=== PATIENT | male | born 1930 | race Caucasian/White ===

== ENCOUNTER 2017-02-06 14:56 | Inpatient (IN) | payer OTHER, MEDICARE ==
[~2017-02-06] VITALS: Ht 162.6 cm; Wt 68.5 kg
[~2017-02-06 14:56] MED LIST: ALDACTONE50 MG PO; ASPIRIN81 M1 PO; CLEOCIN HCL150 MG PO; COREG6.25 MG PO; FAMOTIDINE20 M1 PO; FLORASTOR250 MG PO; LEVAQUIN250 MG PO; LIPITOR20 MG PO; LOSARTAN POTASS50 MG PO; PLAVIX75 MG PO
[2017-02-06 15:11] VITALS: BP 179/80
--- NOTE | 2017-02-06 19:12 | NUR ---
PATIENT AMBULATED TO BED 4
[2017-02-06] MEDS ORDERED: NACL 0.9% 1,000 ML IV ONE (19:20)
--- NOTE | 2017-02-06 19:24 | NUR ---
Patient being evaluated by physician at bedside.
[2017-02-06] MEDS ORDERED: MECLIZINE 25 MG TAB PO ONE (19:45)
[2017-02-06] MEDS ORDERED: METOPROLOL 5 MG/5 ML VIAL IVP ONE (21:20)
[2017-02-06] MEDS ORDERED: NACL 0.9% 1,000 ML IV SCH (22:09)
[2017-02-06] MEDS ORDERED: MORPHINE SULFATE 2 MG/ML SYR IVP PRN (22:10)
[2017-02-06] MEDS ORDERED: HYDROcodone/APAP 5/325 MG 1 TAB TAB PO PRN (22:10)
[2017-02-06] MEDS ORDERED: ACETAMINOPHEN 325 MG TAB PO PRN (22:10)
[2017-02-06] MEDS ORDERED: ONDANSETRON 4 MG/2 ML VIAL IVP PRN (22:10)
[2017-02-06] MEDS ORDERED: MECLIZINE 25 MG TAB PO PRN (22:15)
--- NOTE | 2017-02-06 23:05 | NUR ---
Patient will be admitted to care of DR LAWSON. Admited to TELE. Will go to room 107A. Belongings list completed. Report to INGA PEACOCK.
[2017-02-07] VITALS (7 sets, daily range): BP systolic 145–171; BP diastolic 71–97
--- NOTE | 2017-02-07 00:20 | NUR ---
PATIENT ARRIVED TO UNIT FROM ED VIA GURNEY, PATIENT TRANSFERED TO BED, PATIENT AAOX4 ON ROOM AIR NO SOB OR SIGN OF DISTRESS, IV PATENT AND INTACT, DENIES PAIN AT THIS TIME. PATIENT CONNECTED TO TELE MONITOR. ORIENTED PATIENT TO ROOM AND CALL LIGHT, PATIENTS DAUGHTER AT BEDSIDE TO HELP WITH PT HISTORY. DISCUSSED PLAN OF CARE WITH PATIENT, PATIENT VERBALIZED UNDERSTANDING, CALL LIGHT WITHIN REACH, SAFETY MEASURES CHECKED, WILL CONTINUE TO CLOSELY MONITOR, VITAL SIGNS STABLE
--- NOTE | 2017-02-07 02:30 | NUR ---
PATIENT SLEEPING, NO SIGN OF DISTRESS, CALL LIGHT WITHIN REACH. WILL CONTINUE TO MONITOR.
--- NOTE | 2017-02-07 04:20 | NUR ---
VITAL SIGNS STABLE. NO SIGN OF DISTRESS, CALL LIGHT WITHIN REACH. WILL CONTINUE TO MONITOR
--- NOTE | 2017-02-07 07:15 | NUR ---
RECEIVED PT REPORT AT BEDSIDE FROM NIGHT NURSE. PT IS AAOX4 WITH NO S/S OF DISTRESS ON ROOM AIR. PT SKIN IS INTACT. NOTED IVF RUNNING ON THE RIGHT AC. ON TELE MONITORING. PT DENIES PAIN AND HAS BED LOWERED, FLAT, AND WITH CALL LIGHT WITHIN REACH.
--- NOTE | 2017-02-07 07:30 | NUR ---
ENDORSED PATIENT TO DAY RN AT BEDSIDE, PATIENT IN STABLE CONDITION
[2017-02-07] MEDS ORDERED: NON-FORMULARY ITEM (Famotidine 20 MG) PO SCH (09:00)
[2017-02-07] MEDS ORDERED: LOSARTAN 50 MG TAB PO SCH (09:00)
[2017-02-07] MEDS ORDERED: ATORVASTATIN 20 MG TAB PO SCH (09:00)
[2017-02-07] MEDS: SPIRONOLACTONE 50 MG TAB PO SCH ×2 (09:00→11:50)
--- NOTE | 2017-02-07 09:00 | NUR ---
ADMINISTERED SCHEDULED MEDICATION. PT TOLERATED WELL. WILL CONTINUE TO MONITOR.
[2017-02-07] MEDS: ASPIRIN 81 MG TAB.CHEW PO SCH (09:03)
[2017-02-07] MEDS: CARVEDILOL 6.25 MG TAB PO SCH ×2 (09:04→20:11)
[2017-02-07] MEDS: CLOPIDOGREL 75 MG TAB PO SCH (09:06)
[2017-02-07] MEDS: FAMOTIDINE 20 MG TAB PO SCH ×2 (09:06→20:10)
--- NOTE | 2017-02-07 09:15 | NUR ---
PT SEEN BY DR GÓMEZ.
--- NOTE | 2017-02-07 11:00 | NUR ---
PT AMB TO BR WITH STEADY GAIT. PT IN ROOM WITH FAMILY MEMBERS AND SHOWS NO S/S OF DISTRESS NOTED.
--- NOTE | 2017-02-07 12:15 | NUR ---
PT EATING LUNCH AND TOLERATING WELL.
--- NOTE | 2017-02-07 13:00 | NUR ---
PT IN BED SLEEPING WITH NO S/S OF DISTRESS ON ROOM AIR. WILL CONTINUE TO MONITOR.
--- NOTE | 2017-02-07 15:30 | NUR ---
PT HAS DAUGHTER AT BEDSIDE. PT SHOWS NO S/S OF DISTRESS NOTED.
--- NOTE | 2017-02-07 16:54 | NUR ---
PT IN BED WITH FAMILY MEMBER AT SIDE. PT IS SLEEPING AND SHOWS NO S/S OF DISTRESS NOTED.
--- NOTE | 2017-02-07 17:40 | NUR ---
PT STATES NO DIZZINESS, HEADACHE, OR PAIN. WILL CONTINUE TO MONITOR.
--- NOTE | 2017-02-07 18:43 | NUR ---
PT IS IN BED WITH DAUGHTER AT BEDSIDE. TOLERATED DINNER WELL AND SHOWS NO S/S OF DISTRESS ON ROOM AIR.
--- NOTE | 2017-02-07 19:09 | NUR ---
GAVE PT REPORT TO NIGHT NURSE AT BEDSIDE. PT ENDORSED IN STABLE CONDITION.
--- NOTE | 2017-02-07 19:30 | NUR ---
RECEIVED REPORT FROM DAY RN AT BEDSIDE, PATIENT IS AAOX4 RESTING IN BED, ON ROOM AIR, NO SOB OR SIGN OF DISTRESS AT THIS TIME, IV TO LAC PATENT AND INTACT, SKIN INTACT, PATIENT DENIES PAIN AT THIS TIME, DISCUSSED PLAN OF CARE WITH PATIENT, PATIENT VERBALIZED UNDERSTANDING, SAFETY MEASURES CHECKED, CALL LIGHT WITHIN REACH WILL CONTINUE TO MONITOR
--- NOTE | 2017-02-07 20:15 | NUR ---
PM MEDS ADMINISTERED, PATIENT TOLERATED WELL, CALL LIGHT WITHIN REACH. WILL CONTINUE TO MONITOR
[2017-02-07] MEDS ORDERED: SIMVASTATIN 40 MG TAB PO SCH (21:00)
[2017-02-07] MEDS ORDERED: NACL 0.9% 1,000 ML IV SCH (22:09)
--- NOTE | 2017-02-07 22:30 | NUR ---
PATIENT SLEEPING, NO SOB OR SIGN OF DISTRESS, VITAL SIGNS STABLE, CALL LIGHT WITHIN REACH. WILL CONTINUE TO MONITOR
[2017-02-08] VITALS: BP 144/74
--- NOTE | 2017-02-08 | NUR ---
VITAL SIGNS STABLE, NO SOB OR SIGN OF DISTRESS, CALL LIGHT WITHIN REACH. WILL CONTINUE TO MONITOR
--- NOTE | 2017-02-08 02:40 | NUR ---
PATIENT SLEEPING, NO SOB OR SIGN OF DISTRESS AT THIS TIME, CALL LIGHT WITHIN REACH. WILL CONTINUE TO MONITOR.
[2017-02-08 04:00] VITALS: BP 154/72
--- NOTE | 2017-02-08 04:00 | NUR ---
PATIENT SLEEPING, NO SIGN OF DISTRESS, CALL LIGHT WITHIN REACH. WILL CONTINUE TO MONITOR
--- NOTE | 2017-02-08 07:30 | NUR ---
ENDORSED PATIENT TO DAY RN AT BEDSIDE, PATIENT IN STABLE CONDITION
--- NOTE | 2017-02-08 07:31 | NUR ---
RECEIVED PT AWAKE AND SITTING ON BED, AOX4, BULGARIAN SPEAKING, WITH NO S/S OF RESPIRATORY DISTRESS OR DISCOMFORT, WITH IV ACCESS AT RIGHT AC 20G INFUSING FLUIDS WELL. SKIN IS INTACT, DISCUSSED PLAN OF CARE INTERPRETED BY CHRIS CAPONE, PT VERBALIZED UNDERSTANDING. SAFETY PRECAUTIONS ENFORCED. CALL LIGHT WITHIN REACH, WILL CONTINUE TO MONITOR.
--- NOTE | 2017-02-08 07:35 | NUR ---
DR FOX AT BEDSIDE
[2017-02-08 08:00] VITALS: BP 156/74
[2017-02-08] MEDS ORDERED: MECLIZINE 25 MG TAB PO SCH ×2 (08:15→08:35)
[2017-02-08] MEDS ORDERED: MECLIZINE 25 MG TAB PO PRN (08:15)
[2017-02-08] MEDS: ASPIRIN 81 MG TAB.CHEW PO SCH (08:50)
[2017-02-08] MEDS: CLOPIDOGREL 75 MG TAB PO SCH (08:51)
[2017-02-08] MEDS: SPIRONOLACTONE 50 MG TAB PO SCH (08:51)
[2017-02-08] MEDS: FAMOTIDINE 20 MG TAB PO SCH (08:52)
--- NOTE | 2017-02-08 08:52 | NUR ---
DUE MEDS GIVEN, PT TOLERATED WELL. MEDS EXPLAINED AND EDUCATION DONE INTERPRETED BY CHRIS CAPONE. PT VERBALIZED UNDERSTANDING
[2017-02-08] MEDS ORDERED: LOSARTAN 50 MG TAB PO SCH ×3 (09:00→21:00)
[2017-02-08] MEDS: CARVEDILOL 6.25 MG TAB PO SCH (09:00)
--- NOTE | 2017-02-08 09:19 | NUR ---
PATIENT HAS BEEN SCREENED AND CATEGORIZED MODERATE NUTRITION RISK. PATIENT WILL BE SEEN WITHIN 3-5 DAYS OF ADMISSION. 02/09/17-02/11/[address]
--- NOTE | 2017-02-08 10:06 | NUR ---
PT ASLEEP SLEEPING COMFORTABLE, REMOVED TELE MONITOR PER ORDERS. Addendum: 02/08/17 at 1006 by Renee Saleh RN WRONG PT
--- NOTE | 2017-02-08 10:21 | NUR ---
FAXED INITIAL REVIEW TO [facility] [phone] PHONE KENA [phone]
[2017-02-08 11:15] VITALS: BP 151/73
[2017-02-08] MEDS ORDERED: ENALAPRILAT 2.5 MG/2 ML VIAL IVP SCH (11:59)
--- NOTE | 2017-02-08 12:10 | NUR ---
PT BP ELEVATED 173/74, DR SEWELL NOTIFIED
[2017-02-08] MEDS ORDERED: SPIRONOLACTONE25 MG PO (12:56)
[2017-02-08] MEDS ORDERED: COREG6.25 MG PO (12:56)
[2017-02-08] MEDS ORDERED: PLAVIX75 M1 PO (12:56)
[2017-02-08] MEDS ORDERED: FAMOTIDINE20 M2 PO (12:56)
[2017-02-08] MEDS ORDERED: LOSARTAN POTAS100 MG PO (12:56)
[2017-02-08] MEDS ORDERED: ASPIRIN81 M1 PO (12:56)
[2017-02-08] MEDS ORDERED: MECLIZINE HYDRO25 M2 PO (12:56)
[2017-02-08] MEDS ORDERED: LIPITOR20 MG PO (12:56)
[2017-02-08 13:08] VITALS: BP 151/73
--- NOTE | 2017-02-08 13:55 | NUR ---
DISCHARGE PRESCRIPTIONS AND INSTRUCTIONS GIVEN TO PATIENT AND DAUGHTER STEW, VERBALIZED UNDERSTANDING. ID WRISTBAND, TELE MONITOR AND IV ACCESS REMOVED, CATHETER TIP INTACT. PT LEFT UNIT IN A WHEELCHAIR ACCOMPANIED BY RN AND RELATIVES IN STABLE CONDITION
--- NOTE | 2017-02-08 15:04 | NUR ---
[id number] RECEIVED CALL FROM SHELLIE LANGE AT [facility] REQUESTING CLINICAL REVIEW. INFORMED HIM REVIEW FAXED THIS MORNING TO [phone] AND HE CONFIRMED THAT IS THE CORRECT FAX NUMBER BUT DOES NOT HAVE REVIEW, INFORMED HIM I WILL REFAX. SHELLIE'S PHONE IS [phone].
[2017-02-08] MEDS ORDERED: ATORVASTATIN 20 MG TAB PO SCH (21:00)
[2017-02-09] MEDS ORDERED: LOSARTAN 50 MG TAB PO SCH (09:00)
== END 2017-02-08 13:55 | disposition home or self-care (01) | DRG 52 ==
LOC: MED 14:56 → MTU 21:21
PROVIDERS: ADMIT Family Medicine; ATTEND Family Medicine
DX: I67.4 Hypertensive encephalopathy (principal); I50.43 Acute on chronic combined systolic (congestive) and diastolic (congestive) heart failure; I42.0 Dilated cardiomyopathy; G90.9 Disorder of the autonomic nervous system, unspecified; E11.9 Type 2 diabetes mellitus without complications; M75.101 Unspecified rotator cuff tear or rupture of right shoulder, not specified as traumatic; I11.0 Hypertensive heart disease with heart failure; I25.10 Atherosclerotic heart disease of native coronary artery without angina pectoris; Z79.82 Long term (current) use of aspirin; Z79.899 Other long term (current) drug therapy; Z91.14 Patient's other noncompliance with medication regimen; Z83.3 Family history of diabetes mellitus; Z82.49 Family history of ischemic heart disease and other diseases of the circulatory system; Z80.8 Family history of malignant neoplasm of other organs or systems

== ENCOUNTER 2017-07-23 21:14 | Inpatient (IN) | payer OTHER, MEDICARE ==
[~2017-07-23] VITALS: Ht 165.1 cm; Wt 68.9 kg
[~2017-07-23 21:14] MED LIST changes: -ALDACTONE50 MG PO; +ASPI81CT89 PO; -ASPIRIN81 M1 PO; +ATOR20TA PO; +CARV6.25 PO; -CLEOCIN HCL150 MG PO; +CLOP75TA PO; +CLOP75TA26 PO; -COREG6.25 MG PO; +FAMO20TA12 PO; +FAMO20TA13 PO; -FAMOTIDINE20 M1 PO; -FLORASTOR250 MG PO; -LEVAQUIN250 MG PO; -LIPITOR20 MG PO; +LOSA100T25 PO; -LOSARTAN POTASS50 MG PO; +MECL-272 PO; -PLAVIX75 MG PO; +SPIR25TA13 PO; +SPIR50TA PO
[2017-07-23 21:41] VITALS: BP 162/78
[2017-07-23] MEDS ORDERED: ASPIRIN 81 MG TAB.CHEW PO ONE (22:00)
--- NOTE | 2017-07-23 22:01 | NUR ---
PT TAKEN TO BED 1
--- NOTE | 2017-07-23 22:14 | NUR ---
Patient being evaluated by Dr. Duran at bedside.
--- NOTE | 2017-07-23 22:14 | NUR ---
86/M PRESENTS TO ER C/O CHEST PAIN X1 DAY. CHEST PAIN YESTERDAY ONLY. DIZZINESS AND WEAKNESS TODAY PT DENIES SOB, DENIES PAIN AT THIS TIME. AA&O X4, BL LUNG SOUNS CLEAR THROUGHOUT, PT DENIES N/V/D. VSS, ER MD NOTIFIED OF PT STATUS. PT IN BED WITH FAMILY AT BEDSIDE,COMFORT NEEDS MET.
[2017-07-23 22:21] LABS: HEMATOCRIT 39.7 % (36-52); HEMOGLOBIN 13.1 g/dL (12.0-18.0); MEAN CORPUSCULAR HEMOGLOBIN 31 pg (27-31); MEAN CORPUSCULAR HGB CONC 33 g/dL (33-37); MEAN CORPUSCULAR VOLUME 94 fL (80-94); PLATELET COUNT (AUTO) 162 K/uL (140-450); RED BLOOD CELL COUNT(AUTO) 4.24 MIL/uL (4.20-6.10); RED CELL DISTRIBUTION WIDTH 13.8 % (11.6-13.7); WHITE BLOOD COUNT (AUTO) 5.7 K/uL (4.8-10.8)
--- NOTE | 2017-07-23 22:30 | NUR ---
X-Ray at bedside.
[2017-07-23 22:34] LABS: ANION GAP 12.1 (8-16); CARBON DIOXIDE 29.1 mmol/L (21-32); CHLORIDE 104 mmol/L (98-107); GLUCOSE 111 mg/dL (74-106); POTASSIUM 4.2 mmol/L (3.5-5.1); SODIUM SERUM 141 mmol/L (136-145); UREA NITROGEN, BLOOD 16 mg/dL (7-18)
[2017-07-23 22:35] LABS: APPEARANCE,URINE CLEAR (CLEAR); BILIRUBIN,URINE NEGATIVE (NEGATIVE); BLOOD, URINE TRACE-I (NEGATIVE); COLOR,URINE YELLOW (YELLOW); LEUKOCYTE ESTERASE ,URINE NEGATIVE (NEGATIVE); NITRITE, URINE NEGATIVE (NEGATIVE); PH,URINE 6.5 (5.0-9.0); UGLUCOSE NEGATIVE (NEGATIVE)
[2017-07-23 22:40] LABS: RBC,URINE 0-5 (RARE) /HPF (0-5); WBC,URINE 0-5 (RARE) /HPF (0-5)
[2017-07-23 22:42] LABS: PROTHROMBIN TIME 10.8 secs (10.8-13.4)
[2017-07-23 22:51] LABS: ALBUMIN 4.3 g/dL (3.4-5.0); ASPARTATE AMINOTRANSFERASE 52 U/L (15-37); LIPASE 232 U/L (73-393); TOTAL BILIRUBIN 0.4 mg/dL (0.0-1.0)
[2017-07-23 22:52] LABS: EOSINOPHILS % (MANUAL) 1 % (0-4); LYMPHOCYTES % (MANUAL) 25 % (20-46); MONOCYTES % (MANUAL) 5 % (5-12)
[2017-07-23 23:01] LABS: CREATINE KINASE MB 1.7 ng/mL (0-3.6)
[2017-07-23] MEDS ORDERED: HYDROcodone/APAP 7.5/325 MG 1 TAB PO PRN (23:20)
[2017-07-23] MEDS ORDERED: ONDANSETRON 4 MG/2 ML VIAL IVP PRN (23:20)
[2017-07-23] MEDS ORDERED: ACETAMINOPHEN 325 MG TAB PO PRN (23:20)
--- NOTE | 2017-07-23 23:38 | NUR ---
Dr. Johns evaluating patient at bedside.
[2017-07-23] MEDS ORDERED: FURO-572 PO (23:51)
[2017-07-23] MEDS ORDERED: SACU1TAB9 PO (23:51)
[2017-07-23] MEDS ORDERED: ASPI81CT89 PO (23:51)
--- NOTE | 2017-07-23 23:54 | NUR ---
Patient will be admitted to care of dr rizzo. Admited to tele. Will go to room 122-a. Belongings list completed. Report to joon joshi .
[2017-07-24] VITALS (9 sets, daily range): BP systolic 126–197; BP diastolic 58–87
--- NOTE | 2017-07-24 00:10 | NUR ---
Admitted from ER, with chief complaint of CHEST PAIN, DIZZINESS, DX CHEST PAIN. PT'S SON AT BEDSIDE. 86 y/o, Male, Cooperative, UPPER SORBIAN-SPEAKING, PT REFUSED EQUIPMENT ENGINEERING TECHNICIAN SERVICE, PREFERRED TO HAVE PT'S SON TRANSLATE FOR HIM. PT RESTING IN BED, AOX4, AMBULATORY, ABLE TO VERBALIZE NEEDS. CONCRETE FORM SETTER IN PLACE. PT STATED THAT YESTERDAY, HE FELT DIZZY AND IS UNSURE IF HE LOST CONSCIOUSNESS AND HE FELT SUDDEN NON-RADIATING CHEST PRESSURE. PT DENIES FALLING OR HITTING HIS HEAD. PT DENIES CHEST PAIN OR PRESSURE AT THIS TIME. IV ACCESS ASYMPTOMATIC, PATENT AND INTACT. SALINE LOCKED. DISCUSSED AND REVIEWED PLAN OF CARE WITH PT AND PT'S SON WHO VERBALIZED UNDERSTANDING. oriented to call light, bed, phone,television, bathroom, smoking policy, visiting hours, procedures, ID bracelet on. Belongings list checked. ALL NEEDS MET. SAFETY MEASURES ENSURED. CALL LIGHT WITHIN REACH. WILL CONTINUE TO MONITOR.
[2017-07-24 00:19] LABS: CHOL/HDL RATIO 2.4 (1-4.5); FREE T4 (FREE THYROXINE) 0.83 ng/dL (0.76-1.46); MAGNESIUM 1.8 mg/dL (1.8-2.4); PHOSPHORUS 3.7 mg/dL (2.5-4.9); THYROID STIMULATING HORMONE 15.59 uIU/mL (0.34-3.74)
[2017-07-24] MEDS ORDERED: hydrALAZINE 20 MG/ML VIAL IVP PRN (00:45)
[2017-07-24] MEDS ORDERED: MECLIZINE 25 MG TAB PO PRN (00:45)
--- NOTE | 2017-07-24 00:45 | NUR ---
CALLED DR LEDESMA, DISCUSSED DX CHEST PAIN, MADE MD AWARE OF HIGH BP 197/87, AND PT'S HOME MEDS, PT STATING THAT HE TOOK HIS HOME MEDS IN THE AM BUT DID NOT TAKE HIS HOME MEDS FOR NIGHT. ORDERS PENDING, WILL CARRY OUT.
[2017-07-24] MEDS: CARVEDILOL 6.25 MG TAB PO SCH ×2 (01:10→09:33)
--- NOTE | 2017-07-24 01:10 | NUR ---
UNABLE TO PULL COREG 6.25MG PO FROM [place], RECEIVED MED FROM FAMILY COACH. ADMINISTERED DUE MED COREG 6.25MG PO AT THIS TIME WITH EDUCATION. BP 197, HR 65. PT VERBALIZED UNDERSTANDING, TOLERATED MED WELL. ALL NEEDS MET. SAFETY MEASURES ENSURED. CALL LIGHT WITHIN REACH. WILL CONTINUE TO MONITOR.
[2017-07-24] MEDS ORDERED: CARVEDILOL 6.25 MG TAB ONE (01:15)
--- NOTE | 2017-07-24 04:01 | NUR ---
PT SLEEPING COMFORTABLY, AROUSABLE TO NAME, NO S/S OF ACUTE DISTRESS. ALL NEEDS MET. SAFETY MEASURES ENSURED. CALL LIGHT WITHIN REACH. WILL CONTINUE TO MONITOR.
[2017-07-24 05:34] LABS: BASOPHILS # (AUTO) 0.3 K/uL (0.00-0.22); BASOPHILS % (AUTO) 4.7 % (0.0-2.0); EOSINOPHILS # (AUTO) 0.1 K/uL (0-0.4); EOSINOPHILS % (AUTO) 2.1 % (0.0-4.0); HEMATOCRIT 38.7 % (36-52); HEMOGLOBIN 12.8 g/dL (12.0-18.0); LYMPHOCYTES # (AUTO) 1.8 K/uL (2.0-11.5); MEAN CORPUSCULAR HEMOGLOBIN 31 pg (27-31); MEAN CORPUSCULAR HGB CONC 33 g/dL (33-37); MEAN CORPUSCULAR VOLUME 94 fL (80-94); MONOCYTES # (AUTO) 0.6 K/uL (0.8-1.0); MONOCYTES % (AUTO) 9.2 % (1.7-9.3); NEUTROPHILS # (AUTO) 3.3 K/uL (1.8-7.7); PLATELET COUNT (AUTO) 143 K/uL (140-450); RED BLOOD CELL COUNT(AUTO) 4.14 MIL/uL (4.20-6.10); RED CELL DISTRIBUTION WIDTH 13.5 % (11.6-13.7); WHITE BLOOD COUNT (AUTO) 6.1 K/uL (4.8-10.8)
[2017-07-24 06:16] LABS: ANION GAP 11.5 (8-16); CARBON DIOXIDE 28.2 mmol/L (21-32); CHLORIDE 105 mmol/L (98-107); CREATININE 0.9 mg/dL (0.7-1.3); GLUCOSE 115 mg/dL (74-106); POTASSIUM 3.7 mmol/L (3.5-5.1); SODIUM SERUM 141 mmol/L (136-145); UREA NITROGEN, BLOOD 14 mg/dL (7-18)
[2017-07-24 07:01] LABS: PHOSPHORUS 3.4 mg/dL (2.5-4.9)
--- NOTE | 2017-07-24 07:15 | NUR ---
ENDORSED PLAN OF CARE TO AM NURSE. CONDITION STABLE.
--- NOTE | 2017-07-24 07:16 | NUR ---
RECEIVED REPORT FROM THE BLOCKER POLISHING NURSE AT BEDSIDE FOR CONTINUITY OF CARE. PT IS AWAKE AND ORIENTED. TURKMEN SPEAKING. INTRODUCED MYSELF AND UPDATED THE BOARD. PT DENIES ANY SOB OR CHEST PAIN. V/S WITHIN NORMAL RANGE, EXCEPT ELEVATED BP. PT SKIN IS INTACT. IV ON L AC 20G SL. SO FAR, 2 NEG TROPONIN. WAITING ON 3RD TROPONIN AT 1300. PLAN FOR TODAY: US CAROTID, US KIDNEY, ECHO AND CONSULT W/ DR. LEE.
[2017-07-24] MEDS ORDERED: VALSARTAN PO SCH (09:00)
[2017-07-24] MEDS ORDERED: ASPIRIN 81 MG TAB.CHEW PO SCH (09:00)
[2017-07-24] MEDS ORDERED: CLOPIDOGREL 75 MG TAB PO SCH (09:00)
[2017-07-24] MEDS ORDERED: SACUBITRIL PO SCH (09:00)
[2017-07-24] MEDS ORDERED: CARVEDILOL 6.25 MG TAB PO SCH (09:00)
[2017-07-24] MEDS ORDERED: FAMOTIDINE 20 MG TAB PO SCH (09:00)
[2017-07-24] MEDS: ASPIRIN 81 MG TAB.CHEW PO SCH (09:31)
[2017-07-24] MEDS: DOCUSATE SODIUM 100 MG GELCAP PO SCH ×2 (09:31→20:40)
[2017-07-24] MEDS: FUROSEMIDE 20 MG TAB PO SCH (09:32)
[2017-07-24] MEDS: ATORVASTATIN 20 MG TAB PO SCH (09:33)
[2017-07-24] MEDS: CLOPIDOGREL 75 MG TAB PO SCH (09:33)
--- NOTE | 2017-07-24 09:40 | NUR ---
ADMINISTERED MORNING MEDS. HYDRALAZINE ALSO GIVEN D/T HIGH BP 168/81. PT TOLERATED WELL. WILL CONTINUE TO MONITOR PT.
--- NOTE | 2017-07-24 10:05 | NUR ---
PATIENT HAS BEEN SCREENED AND CATEGORIZED MODERATE RISK. PATIENT WILL BE SEEN WITHIN 3-5 DAYS OF ADMISSION. 07/26/17 TO 07/28/[address]
--- NOTE | 2017-07-24 11:11 | NUR ---
FAMILY MEMBER VISITING.
[2017-07-24] MEDS ORDERED: FAMO20TA13 PO (15:37)
[2017-07-24] MEDS ORDERED: CARV6.25 PO (15:37)
[2017-07-24] MEDS ORDERED: SYN.05 PO (15:51)
--- NOTE | 2017-07-24 17:06 | NUR ---
PT IS RESTING COMFORTABLY W/ FAMILY MEMBERS AT BEDSIDE. PT DENIES ANY PAIN. WILL CONTINUE TO MONITOR PT.
--- NOTE | 2017-07-24 19:21 | NUR ---
ENDORSED PT TO THE SUPERVISOR COUNSELING AND GUIDANCE NURSE AT BEDSIDE FOR CONTINUITY OF CARE. PT IS IN STABLE CONDITION. ALL FAMILY MEMBERS ARE GONE AND PT IS RESTING COMFORTABLY. PT IN STABLE CONDITION.
--- NOTE | 2017-07-24 19:22 | NUR ---
RECEIVED REPORT FROM DAY SHIFT RN, PT IS Jesse/NAHID, ON ROOM AIR, SRI LANKAN SPEAKING. INTACT SKIN. LEFT AC IV 20G SALINE LOCKED. PT AMBULATES WITH STANDBY ASSISTANCE. SAFETY PRECAUTIONS IN PLACE. UPDATED BOARD. DISCUSSED PLAN OF CARE WITH PT IN SRI LANKAN, PT VERBALIZED UNDERSTANDING. VITAL SIGNS WITHIN NORMAL LIMITS. PT IN STABLE CONDITION, NO SIGNS OF DISTRESS NOTED. BED IN LOW POSITION, CALL LIGHT WITHIN REACH. WILL CONTINUE TO MONITOR.
[2017-07-24] MEDS: CARVEDILOL 12.5 MG TAB PO SCH (20:39)
--- NOTE | 2017-07-24 20:40 | NUR ---
ADMINISTERED SCHEDULED MEDICATIONS, PT TOLERATED WELL. PT IN STABLE CONDITION, NO SIGNS OF DISTRESS NOTED. BED IN LOW POSITION, CALL LIGHT WITHIN REACH. WILL CONTINUE TO MONITOR.
--- NOTE | 2017-07-24 21:19 | NUR ---
RECEIVED REPORT FROM DAY SHIFT RN, PT IS FATOUMATA, ON ROOM AIR, BERMUDIAN SPEAKING. INTACT SKIN. LEFT AC IV 20G SALINE LOCKED. PT AMBULATES WITH STANDBY ASSISTANCE. SAFETY PRECAUTIONS IN PLACE. UPDATED BOARD. DISCUSSED PLAN OF CARE WITH PT IN BERMUDIAN, PT VERBALIZED UNDERSTANDING. VITAL SIGNS WITHIN NORMAL LIMITS. PT IN STABLE CONDITION, NO SIGNS OF DISTRESS NOTED. BED IN LOW POSITION, CALL LIGHT WITHIN REACH. WILL CONTINUE TO MONITOR. Addendum: 07/24/17 at 2121 by Radha Eisenberg RN PLEASE DISREGARD. ERROR MADE.
[2017-07-25] VITALS: BP 137/65
--- NOTE | 2017-07-25 02:00 | NUR ---
PT STATES HE WANTS TO GO HOME. EXPLAINED TO PT DR WOULD BE IN TO SEE HIM AND DR WOULD DECIDE IF PT STABLE ENOUGH TO GO HOME. PT VERBALIZED UNDERSTANDING. PT IN STABLE CONDITION, NO SIGNS OF DISTRESS NOTED. BED IN LOW POSITION, CALL LIGHT WITHIN REACH. WILL CONTINUE TO MONITOR.
[2017-07-25 04:18] VITALS: BP 137/68
[2017-07-25] MEDS ORDERED: LEVOTHYROXINE 0.05 MG TAB PO SCH (06:30)
[2017-07-25 06:57] LABS: BASOPHILS # (AUTO) 0.2 K/uL (0.00-0.22); BASOPHILS % (AUTO) 3.9 % (0.0-2.0); EOSINOPHILS # (AUTO) 0.1 K/uL (0-0.4); EOSINOPHILS % (AUTO) 1.7 % (0.0-4.0); HEMOGLOBIN 12.5 g/dL (12.0-18.0); LYMPHOCYTES # (AUTO) 1.7 K/uL (2.0-11.5); LYMPHOCYTES % (AUTO) 32.1 % (20.5-51.1); MEAN CORPUSCULAR HEMOGLOBIN 32 pg (27-31); MEAN CORPUSCULAR HGB CONC 34 g/dL (33-37); MEAN CORPUSCULAR VOLUME 93 fL (80-94); MONOCYTES # (AUTO) 0.5 K/uL (0.8-1.0); MONOCYTES % (AUTO) 10.1 % (1.7-9.3); NEUTROPHILS # (AUTO) 2.7 K/uL (1.8-7.7); NEUTROPHILS % (AUTO) 52.2 % (42.2-75.2); PLATELET COUNT (AUTO) 153 K/uL (140-450); RED BLOOD CELL COUNT(AUTO) 3.98 MIL/uL (4.20-6.10); RED CELL DISTRIBUTION WIDTH 13.6 % (11.6-13.7); WHITE BLOOD COUNT (AUTO) 5.2 K/uL (4.8-10.8)
--- NOTE | 2017-07-25 07:20 | NUR ---
ENDORSED PT TO DAY SHIFT RN FOR CONTINUITY OF CARE. PT IN STABLE CONDITION WITH NO SIGNS OF DISTRESS.
[2017-07-25 07:49] LABS: ANION GAP 11.5 (8-16); CARBON DIOXIDE 29.5 mmol/L (21-32); CHLORIDE 103 mmol/L (98-107); CREATININE 1.3 mg/dL (0.7-1.3); GLUCOSE 113 mg/dL (74-106); SODIUM SERUM 140 mmol/L (136-145); UREA NITROGEN, BLOOD 22 mg/dL (7-18)
[2017-07-25 08:00] VITALS: BP 156/67
[2017-07-25] MEDS ORDERED: TAMSULOSIN 0.4 MG CAP PO SCH (08:30)
[2017-07-25] MEDS: ASPIRIN 81 MG TAB.CHEW PO SCH (08:43)
[2017-07-25] MEDS: DOCUSATE SODIUM 100 MG GELCAP PO SCH (08:43)
[2017-07-25] MEDS: FUROSEMIDE 20 MG TAB PO SCH (08:44)
[2017-07-25] MEDS: CLOPIDOGREL 75 MG TAB PO SCH (08:44)
[2017-07-25] MEDS: ATORVASTATIN 20 MG TAB PO SCH (08:44)
[2017-07-25] MEDS: CARVEDILOL 12.5 MG TAB PO SCH (09:00)
[2017-07-25] MEDS ORDERED: FAMOTIDINE 20 MG TAB PO SCH (09:00)
[2017-07-25 12:00] VITALS: BP 163/67
--- NOTE | 2017-07-26 15:13 | NUR ---
CM NOTE RETRO REVIEW FAXED TO [facility] / FAX# [phone], ATTN: AZUL #[phone]
== END 2017-07-25 14:00 | disposition home or self-care (01) | DRG 203 ==
LOC: MED 21:14 → MTU 23:26
PROVIDERS: ADMIT Student in an Organized Health Care Education/Training Program; ATTEND Student in an Organized Health Care Education/Training Program
DX: M94.0 Chondrocostal junction syndrome [Tietze] (principal); N17.0 Acute kidney failure with tubular necrosis; I50.43 Acute on chronic combined systolic (congestive) and diastolic (congestive) heart failure; I67.4 Hypertensive encephalopathy; I42.0 Dilated cardiomyopathy; E02 Subclinical iodine-deficiency hypothyroidism; I11.0 Hypertensive heart disease with heart failure; E11.51 Type 2 diabetes mellitus with diabetic peripheral angiopathy without gangrene; R00.1 Bradycardia, unspecified; G90.9 Disorder of the autonomic nervous system, unspecified; I44.0 Atrioventricular block, first degree; R31.9 Hematuria, unspecified; E78.00 Pure hypercholesterolemia, unspecified; Z90.49 Acquired absence of other specified parts of digestive tract; Z79.899 Other long term (current) drug therapy; Z83.3 Family history of diabetes mellitus; Z82.49 Family history of ischemic heart disease and other diseases of the circulatory system; Z80.0 Family history of malignant neoplasm of digestive organs; Z84.89 Family history of other specified conditions
CPT/HCPCS: 36415; 70450; 71010; 76770; 80048; 80053; 81001; 82150; 82550; 82553; 83036; 83605; 83690; 83735; 83880; 84100; 84439; 84443; 84484; 85025; 85610; 85730; 87081; 93005; 93880; 99285; J0360; Q0092

== ENCOUNTER 2018-09-30 04:15 | Inpatient (IN) | payer MEDICARE, OTHER ==
[~2018-09-30] VITALS: Ht 162.6 cm; Wt 65.3 kg
[~2018-09-30 04:15] MED LIST changes: -CLOP75TA PO; -CLOP75TA26 PO; -FAMO20TA12 PO; +FURO-572 PO; -LOSA100T25 PO; -MECL-272 PO; +SACU1TAB9 PO; -SPIR25TA13 PO; -SPIR50TA PO; +SYN.05 PO
[2018-09-30 04:22] VITALS: BP 182/78
[2018-09-30] MEDS ORDERED: NACL 0.9% 1,000 ML IV SCH (04:35)
[2018-09-30] MEDS ORDERED: ALBUTEROL SULFATE/IPRATROPIU 3 ML SOL IH ONE (04:35)
[2018-09-30 05:36] LABS: BASOPHILS % (AUTO) 0.2 % (0.0-2.0); EOSINOPHILS # (AUTO) 0.1 K/uL (0-0.4); EOSINOPHILS % (AUTO) 0.4 % (0.0-4.0); HEMATOCRIT 40.5 % (36-52); HEMOGLOBIN 12.9 g/dL (12.0-18.0); LYMPHOCYTES # (AUTO) 1.4 K/uL (2.0-11.5); LYMPHOCYTES % (AUTO) 11.1 % (20.5-51.1); MEAN CORPUSCULAR HEMOGLOBIN 30 pg (27-31); MEAN CORPUSCULAR HGB CONC 32 g/dL (33-37); MEAN CORPUSCULAR VOLUME 92.7 fL (80-94); MONOCYTES # (AUTO) 0.5 K/uL (0.8-1.0); MONOCYTES % (AUTO) 3.8 % (1.7-9.3); NEUTROPHILS # (AUTO) 10.5 K/uL (1.8-7.7); NEUTROPHILS % (AUTO) 84.5 % (42.2-75.2); PLATELET COUNT (AUTO) 217 K/uL (140-450); RED BLOOD CELL COUNT(AUTO) 4.37 MIL/uL (4.20-6.10); RED CELL DISTRIBUTION WIDTH 13.9 % (11.6-13.7); WHITE BLOOD COUNT (AUTO) 12.4 K/uL (4.8-10.8)
[2018-09-30 06:00] LABS: ANION GAP 11.8 (8-16); CARBON DIOXIDE 26.4 mmol/L (21-32); CHLORIDE 107 mmol/L (98-107); CREATININE 0.9 mg/dL (0.7-1.3); GLUCOSE 138 mg/dL (74-106); POTASSIUM 3.2 mmol/L (3.5-5.1); SODIUM SERUM 142 mmol/L (136-145); UREA NITROGEN, BLOOD 14 mg/dL (7-18)
[2018-09-30 06:01] LABS: ALBUMIN 3.7 g/dL (3.4-5.0); ASPARTATE AMINOTRANSFERASE 21 U/L (15-37); TOTAL BILIRUBIN 0.6 mg/dL (0.0-1.0)
[2018-09-30 06:06] LABS: APPEARANCE,URINE CLEAR (CLEAR); BILIRUBIN,URINE NEGATIVE (NEGATIVE); BLOOD, URINE TRACE-L (NEGATIVE); COLOR,URINE YELLOW (YELLOW); LEUKOCYTE ESTERASE ,URINE NEGATIVE (NEGATIVE); NITRITE, URINE NEGATIVE (NEGATIVE); PH,URINE 5.5 (5.0-9.0); UGLUCOSE NEGATIVE (NEGATIVE)
[2018-09-30 06:11] LABS: RBC,URINE 0-5 (RARE) /HPF (0-5); WBC,URINE 0-5 (RARE) /HPF (0-5)
[2018-09-30] MEDS: NACL 0.9% 1,000 ML IV SCH (06:48)
[2018-09-30] MEDS ORDERED: ONDANSETRON 4 MG/2 ML VIAL IM/IVP PRN (06:50)
[2018-09-30] MEDS ORDERED: INSULIN LISPRO SLIDING SCALE 100 UNITS/ML VIAL SUBQ PRN (06:50)
[2018-09-30] MEDS ORDERED: DOCUSATE SODIUM 100 MG GELCAP PO PRN (06:50)
[2018-09-30] MEDS ORDERED: ALBUTEROL SULFATE/IPRATROPIU 3 ML SOL IH PRN (06:50)
[2018-09-30] MEDS ORDERED: HYDROcodone/APAP 5/325 MG 1 TAB TAB PO PRN (06:50)
[2018-09-30] MEDS ORDERED: DEXTROSE 50% 50 ML SYR IVP PRN (06:50)
[2018-09-30] MEDS ORDERED: ACETAMINOPHEN 325 MG TAB PO PRN (06:50)
[2018-09-30 07:28] LABS: PROTHROMBIN TIME 10.2 secs (10.8-13.4)
[2018-09-30] MEDS: BLOOD GLUCOSE MONITORING 1 DEV DEV FS SCH ×4 (07:30→20:17)
[2018-09-30 07:44] LABS: MAGNESIUM 1.8 mg/dL (1.8-2.4); PHOSPHORUS 2.2 mg/dL (2.5-4.9); THYROID STIMULATING HORMONE 15.08 uIU/mL (0.34-3.74)
[2018-09-30 08:00] VITALS: BP 178/89
[2018-09-30] MEDS ORDERED: SODIUM PHOS / POTASSIUM PHOS 1 PKT PDR PO SCH (09:00)
[2018-09-30] MEDS: ALBUTEROL SULFATE/IPRATROPIU 3 ML SOL IH SCH ×2 (09:28→13:47)
[2018-09-30] MEDS ORDERED: CARVEDILOL 6.25 MG TAB PO SCH (09:34)
[2018-09-30] MEDS ORDERED: CARVEDILOL 12.5 MG TAB PO SCH (09:35)
[2018-09-30] MEDS ORDERED: POTASSIUM CHLORIDE 40 MEQ, LIDOCAINE 1% 25 MG in NACL 0.9% 250 ML IV SCH (10:00)
[2018-09-30 12:00] VITALS: BP 164/81
[2018-09-30] MEDS ORDERED: FAMOTIDINE 20 MG TAB PO SCH (13:00)
[2018-09-30] MEDS ORDERED: ATORVASTATIN 20 MG TAB PO SCH (13:00)
[2018-09-30] MEDS ORDERED: ASPIRIN 81 MG TAB.CHEW PO SCH (13:00)
[2018-09-30] MEDS: PIPERACILLIN/TAZOBACTAM 4.5 GM in DEXTROSE 5% 100 ML IV SCH ×3 (13:50→23:41)
[2018-09-30] MEDS ORDERED: POTASSIUM CHLORIDE 10 MEQ TABER PO SCH (14:00)
[2018-09-30] MEDS ORDERED: LISINOPRIL 10 MG TAB PO SCH (14:13)
[2018-09-30 16:00] VITALS: BP 157/75
[2018-09-30] MEDS: CARVEDILOL 12.5 MG TAB PO SCH (16:41)
[2018-09-30 20:00] VITALS: BP 105/43
[2018-10-01] VITALS: BP 120/53
[2018-10-01 04:00] VITALS: BP 111/51
[2018-10-01] MEDS: BLOOD GLUCOSE MONITORING 1 DEV DEV FS SCH ×4 (05:28→20:46)
[2018-10-01] MEDS: PIPERACILLIN/TAZOBACTAM 4.5 GM in DEXTROSE 5% 100 ML IV SCH ×4 (05:29→23:04)
[2018-10-01] MEDS: NACL 0.9% 1,000 ML IV SCH (05:30)
[2018-10-01] MEDS: LEVOTHYROXINE 0.075 MG TAB PO SCH (05:30)
[2018-10-01] MEDS ORDERED: LEVOTHYROXINE 0.05 MG TAB PO SCH (06:30)
[2018-10-01 07:24] LABS: BASOPHILS % (AUTO) 0.3 % (0.0-2.0); EOSINOPHILS # (AUTO) 0.1 K/uL (0-0.4); EOSINOPHILS % (AUTO) 0.8 % (0.0-4.0); HEMATOCRIT 35.9 % (36-52); HEMOGLOBIN 11.5 g/dL (12.0-18.0); LYMPHOCYTES # (AUTO) 1.1 K/uL (2.0-11.5); MEAN CORPUSCULAR HEMOGLOBIN 30 pg (27-31); MEAN CORPUSCULAR HGB CONC 32 g/dL (33-37); MEAN CORPUSCULAR VOLUME 92.8 fL (80-94); MONOCYTES # (AUTO) 0.7 K/uL (0.8-1.0); MONOCYTES % (AUTO) 7.3 % (1.7-9.3); NEUTROPHILS # (AUTO) 7.9 K/uL (1.8-7.7); NEUTROPHILS % (AUTO) 80.6 % (42.2-75.2); PLATELET COUNT (AUTO) 192 K/uL (140-450); RED BLOOD CELL COUNT(AUTO) 3.87 MIL/uL (4.20-6.10); RED CELL DISTRIBUTION WIDTH 14.2 % (11.6-13.7); WHITE BLOOD COUNT (AUTO) 9.8 K/uL (4.8-10.8)
[2018-10-01 08:00] VITALS: BP 125/57
[2018-10-01 08:22] LABS: ANION GAP 10.7 (8-16); CARBON DIOXIDE 26.2 mmol/L (21-32); CHLORIDE 106 mmol/L (98-107); CREATININE 1.3 mg/dL (0.7-1.3); GLUCOSE 135 mg/dL (74-106); POTASSIUM 3.9 mmol/L (3.5-5.1); SODIUM SERUM 139 mmol/L (136-145); UREA NITROGEN, BLOOD 16 mg/dL (7-18)
[2018-10-01] MEDS: ATORVASTATIN 20 MG TAB PO SCH (08:46)
[2018-10-01] MEDS: FAMOTIDINE 20 MG TAB PO SCH (08:47)
[2018-10-01] MEDS: LISINOPRIL 10 MG TAB PO SCH (08:48)
[2018-10-01] MEDS: LACTOBACILLUS RHAMNOSUS GG 1 EACH CAP PO SCH (08:48)
[2018-10-01] MEDS: ASPIRIN 81 MG TAB.CHEW PO SCH (08:48)
[2018-10-01] MEDS: FUROSEMIDE 20 MG TAB PO SCH (08:48)
[2018-10-01] MEDS: CARVEDILOL 12.5 MG TAB PO SCH ×2 (08:49→16:29)
[2018-10-01 09:10] LABS: MAGNESIUM 1.7 mg/dL (1.8-2.4); PHOSPHORUS 2.3 mg/dL (2.5-4.9)
[2018-10-01 12:00] VITALS: BP 133/89
[2018-10-01] MEDS ORDERED: SODIUM PHOS / POTASSIUM PHOS 1 PKT PDR PO SCH (13:00)
[2018-10-01] MEDS ORDERED: MAGNESIUM OXIDE 400 MG TAB PO SCH (13:00)
[2018-10-01 16:00] VITALS: BP 131/80
[2018-10-01 20:00] VITALS: BP 135/56
[2018-10-02] VITALS: BP 130/53
[2018-10-02 04:00] VITALS: BP 141/66
[2018-10-02] MEDS: PIPERACILLIN/TAZOBACTAM 4.5 GM in DEXTROSE 5% 100 ML IV SCH (05:07)
[2018-10-02] MEDS: LEVOTHYROXINE 0.075 MG TAB PO SCH (05:51)
[2018-10-02] MEDS: BLOOD GLUCOSE MONITORING 1 DEV DEV FS SCH ×2 (06:32→11:55)
[2018-10-02 06:39] LABS: BASOPHILS % (AUTO) 0.6 % (0.0-2.0); EOSINOPHILS # (AUTO) 0.2 K/uL (0-0.4); LYMPHOCYTES # (AUTO) 1.4 K/uL (2.0-11.5); MEAN CORPUSCULAR HEMOGLOBIN 30 pg (27-31); MEAN CORPUSCULAR HGB CONC 32 g/dL (33-37); MEAN CORPUSCULAR VOLUME 92.5 fL (80-94); MONOCYTES # (AUTO) 0.5 K/uL (0.8-1.0); MONOCYTES % (AUTO) 6.7 % (1.7-9.3); NEUTROPHILS # (AUTO) 5.9 K/uL (1.8-7.7); NEUTROPHILS % (AUTO) 73.7 % (42.2-75.2); PLATELET COUNT (AUTO) 211 K/uL (140-450); RED CELL DISTRIBUTION WIDTH 14.2 % (11.6-13.7)
[2018-10-02 07:19] LABS: ANION GAP 8.9 (8-16); CARBON DIOXIDE 29.3 mmol/L (21-32); CHLORIDE 105 mmol/L (98-107); CREATININE 1.4 mg/dL (0.7-1.3); GLUCOSE 106 mg/dL (74-106); POTASSIUM 4.2 mmol/L (3.5-5.1); SODIUM SERUM 139 mmol/L (136-145); UREA NITROGEN, BLOOD 16 mg/dL (7-18)
[2018-10-02 07:27] LABS: MAGNESIUM 1.8 mg/dL (1.8-2.4); PHOSPHORUS 3.2 mg/dL (2.5-4.9)
[2018-10-02 08:00] VITALS: BP 158/77
[2018-10-02] MEDS ORDERED: LISI10TA11 PO (08:16)
[2018-10-02] MEDS ORDERED: SYN.05 PO (08:16)
[2018-10-02] MEDS ORDERED: POTA10TE30 PO (08:16)
[2018-10-02] MEDS ORDERED: AMOX-999 PO (08:26)
[2018-10-02] MEDS: FAMOTIDINE 20 MG TAB PO SCH (08:50)
[2018-10-02] MEDS: LACTOBACILLUS RHAMNOSUS GG 1 EACH CAP PO SCH (08:51)
[2018-10-02] MEDS: CARVEDILOL 12.5 MG TAB PO SCH (08:51)
[2018-10-02] MEDS: ATORVASTATIN 20 MG TAB PO SCH (08:51)
[2018-10-02] MEDS: ASPIRIN 81 MG TAB.CHEW PO SCH (08:51)
[2018-10-02] MEDS: LISINOPRIL 10 MG TAB PO SCH (08:52)
[2018-10-02] MEDS: FUROSEMIDE 20 MG TAB PO SCH (08:52)
[2018-10-02 12:00] VITALS: BP 144/64
[2018-10-02] MEDS ORDERED: CARVEDILOL 12.5 MG TAB PO SCH (15:00)
[2018-10-02] MEDS ORDERED: AMOXIL/CLAVULANATE 500/125 MG 1 TAB PO SCH (15:00)
== END 2018-10-02 14:40 | disposition home or self-care (01) | DRG 871 ==
LOC: MED 04:15 → MTU 06:48
PROVIDERS: ADMIT General Practice; ATTEND General Practice
DX: A41.9 Sepsis, unspecified organism (principal); J69.0 Pneumonitis due to inhalation of food and vomit; I50.43 Acute on chronic combined systolic (congestive) and diastolic (congestive) heart failure; E11.65 Type 2 diabetes mellitus with hyperglycemia; I16.0 Hypertensive urgency; E03.9 Hypothyroidism, unspecified; E83.39 Other disorders of phosphorus metabolism; E87.6 Hypokalemia; I25.10 Atherosclerotic heart disease of native coronary artery without angina pectoris; K21.9 Gastro-esophageal reflux disease without esophagitis; E86.0 Dehydration; E83.42 Hypomagnesemia
CPT/HCPCS: 36415; 71045; 80048; 80053; 81001; 82948; 83036; 83605; 83690; 83735; 83880; 84100; 84443; 84484; 85025; 85379; 85610; 85730; 87040; 87070; 87081; 87086; 87205; 87804; 94640; 99285; J1815; J2001; J2543; J3480; J7030; J7060; J7620; Q0092

== ENCOUNTER 2019-07-18 20:38 | Inpatient (IN) | payer OTHER, MEDICARE ==
[~2019-07-18] VITALS: Ht 162.6 cm; Wt 84.8 kg
[2019-07-18 20:38] VITALS: BP 168/102
[~2019-07-18 20:38] MED LIST changes: +AMOX-999 PO; +ASPI-1718 PO; -ASPI81CT89 PO; +LISI10TA11 PO; +POTA10TE30 PO; -SACU1TAB9 PO
--- NOTE | 2019-07-18 20:38 | NUR ---
PT MADINA ALS. TAKEN TO BED 7
--- NOTE | 2019-07-18 20:38 | NUR ---
RN DRAWING BLOOD AND COLLECTING URINE FROM URINAL AT BEDSIDE.
--- NOTE | 2019-07-18 20:40 | NUR ---
PT BIBA C/O LUCIA, GENERALIZED WEAKNESS, DIZZINESS TODAY. [facility] AT [facility] DENIES ANY HEAD TRUAMA OR INJURY. A & O X 4. MUMBLED SPEECH. PULSES POUNDING UPPER EXTREM. NO OBVIOUS SIGN OF DEFORMITY NOTED. NO HEMATOMA. VSS. NKA. MEDICAL HX: HTN, A FIB, HYPERLIPIDEMIA, HYPERTHYRIOD
--- NOTE | 2019-07-18 20:43 | NUR ---
PATIENT'S FAMILY AT BEDSIDE, NON COMPLIANT WITH STAYING IN ROOM AND AMOUNT OF PEOPLE AT BEDSIDE. DISRUPTIVE. ASKED THE FAMILY TO SWITCH OUT AND ONE AT BEDSIDE AT A TIME DUE TO TOO MANY PEOPLE IN ROOM AT ONE TIME. NEILD MADE AWARE.
--- NOTE | 2019-07-18 20:45 | NUR ---
EMT PERFORMING EKG AT BEDSIDE.
--- NOTE | 2019-07-18 20:50 | NUR ---
PT TAKING LEVOTHYROXINE, ASPIRIN, SPIRONOLACTONE, ATROVASTATIN PER EMS
--- NOTE | 2019-07-18 20:52 | NUR ---
CONTACT INFORMATION, GRANDDAUGHTER SHERLEY [phone]
[2019-07-18 21:02] LABS: BASOPHILS % (AUTO) 0.3 % (0.0-2.0); HEMATOCRIT 44.9 % (36-52); LYMPHOCYTES # (AUTO) 0.4 K/uL (2.0-11.5); LYMPHOCYTES % (AUTO) 4.4 % (20.5-51.1); MEAN CORPUSCULAR HEMOGLOBIN 32 pg (27-31); MEAN CORPUSCULAR HGB CONC 33 g/dL (33-37); MEAN CORPUSCULAR VOLUME 95.1 fL (80-94); MONOCYTES # (AUTO) 0.2 K/uL (0.8-1.0); MONOCYTES % (AUTO) 2.3 % (1.7-9.3); NEUTROPHILS # (AUTO) 8.2 K/uL (1.8-7.7); PLATELET COUNT (AUTO) 219 K/uL (140-450); RED BLOOD CELL COUNT(AUTO) 4.72 MIL/uL (4.20-6.10); RED CELL DISTRIBUTION WIDTH 13.7 % (11.6-13.7); WHITE BLOOD COUNT (AUTO) 8.8 K/uL (4.8-10.8)
[2019-07-18 21:06] LABS: APPEARANCE,URINE CLEAR (CLEAR); BILIRUBIN,URINE NEGATIVE (NEGATIVE); BLOOD, URINE 1+ (NEGATIVE); COLOR,URINE YELLOW (YELLOW); LEUKOCYTE ESTERASE ,URINE NEGATIVE (NEGATIVE); NITRITE, URINE NEGATIVE (NEGATIVE); UGLUCOSE 2+ (NEGATIVE)
[2019-07-18 21:15] LABS: RBC,URINE 0-5 /HPF (0-5); WBC,URINE NONE SEEN /HPF (0-5)
[2019-07-18 21:17] LABS: CARBON DIOXIDE 22.7 mmol/L (21-32); CHLORIDE 95 mmol/L (98-107); CREATININE 1.1 mg/dL (0.7-1.3); GLUCOSE 186 mg/dL (74-106); POTASSIUM 3.7 mmol/L (3.5-5.1); SODIUM SERUM 135 mmol/L (136-145); UREA NITROGEN, BLOOD 11 mg/dL (7-18)
--- NOTE | 2019-07-18 21:20 | NUR ---
Dr. Diaz examining patient.
[2019-07-18 21:23] LABS: ALBUMIN 4.8 g/dL (3.4-5.0); ASPARTATE AMINOTRANSFERASE 27 U/L (15-37); TOTAL BILIRUBIN 1.2 mg/dL (0.0-1.0)
[2019-07-18] MEDS ORDERED: hydrALAZINE 20 MG/ML VIAL IVP ONE (21:25)
--- NOTE | 2019-07-18 21:25 | NUR ---
Pt report given to AYUSH HARRISON. Transfer of care at this time.
--- NOTE | 2019-07-18 21:26 | NUR ---
RECEIVED REPORT FROM AYUSH HERRERA. TRANSFER OF CARE AT THIS TIME.
--- NOTE | 2019-07-18 21:30 | NUR ---
PT RESTING IN BED WITH EYES CLOSED. FAMILY AT BEDSIDE. PT AROUSABLE TO SHAKING; OPENS EYES, GOES BACK TO SLEEP. PT IS LETHARGIC/WEAK.
[2019-07-18] MEDS ORDERED: NACL 0.9% 1,000 ML IV ONE (21:55)
--- NOTE | 2019-07-18 22:10 | NUR ---
PATIENT'S FAMILY AT BEDSIDE, NON COMPLIANT WITH STAYING IN ROOM AND AMOUNT OF PEOPLE AT BEDSIDE. DISRUPTIVE. CONSISTANTLY COMING UP TO THE NURSES STATION EVERY FEW MIMUTES TO ASK REPEATED QUESTIONS. AND FOR THE ERMD. WHEN LET THEM KNOW THAT THE NURSE WILL BE WITH THEM WHEN THEY CAN, FAMILY GETS UPSET. ASKED THE FAMILY TO SWITCH OUT AND ONE AT BEDSIDE AT A TIME DUE TO TOO MANY PEOPLE IN ROOM AT ONE TIME. ERMD MADE AWARE.
[2019-07-18] MEDS ORDERED: ACETAMINOPHEN 325 MG TAB PO PRN (23:40)
[2019-07-18] MEDS ORDERED: MORPHINE SULFATE 2 MG/ML SYR IVP PRN (23:40)
[2019-07-18] MEDS ORDERED: HYDROcodone/APAP 7.5/325 MG 1 TAB PO PRN (23:40)
[2019-07-18] MEDS ORDERED: ONDANSETRON 4 MG/2 ML VIAL IM/IVP PRN (23:40)
--- NOTE | 2019-07-18 23:50 | NUR ---
PATIENT'S FAMILY AT BEDSIDE, NON COMPLIANT WITH STAYING IN ROOM AND AMOUNT OF PEOPLE AT BEDSIDE, ASKED A FEW TIMES TO SWITCH OUT DUE TO TOO MANY PEOPLE IN ROOM AT ONE TIME. NEILD MADE AWARE.
[2019-07-18 23:58] LABS: BARBITURATE, URINE NEG. ng/ml (NEG <=200); BENZODIAZEPINE, URINE NEG. ng/mL (NEG <=200); CANNABINOID, URINE NEG. ng/mL (NEG <=50); COCAINE, URINE NEG. ng/mL (NEG <=300); OPIATE, URINE NEG. ng/mL (NEG <=2000); PHENCYCLIDINE SCREEN,URINE NEG. ng/mL (NEG <=25)
[2019-07-19] MEDS ORDERED: NACL 0.9% 1,000 ML IV SCH
[2019-07-19 00:08] LABS: PROTHROMBIN TIME 26.5 secs (10.8-13.4)
--- NOTE | 2019-07-19 00:13 | NUR ---
X-Ray at bedside.
[2019-07-19 00:18] LABS: CHOL/HDL RATIO 3.3 (1-4.5); FREE T4 (FREE THYROXINE) 1.09 ng/dL (0.76-1.46); MAGNESIUM 1.7 mg/dL (1.8-2.4); PHOSPHORUS 2.7 mg/dL (2.5-4.9); THYROID STIMULATING HORMONE 4.58 uIU/mL (0.34-3.74)
[2019-07-19] MEDS ORDERED: DEXTROSE 50% 50 ML SYR IVP PRN (00:25)
[2019-07-19] MEDS ORDERED: INSULIN LISPRO SLIDING SCALE 100 UNITS/ML VIAL SUBQ PRN (00:25)
--- NOTE | 2019-07-19 00:30 | NUR ---
Patient will be admitted to care of Dr. CAMPOS. Admited to TELE. Will go to room 121A. Belongings list completed. Report to AYUSH Stephenson.
--- NOTE | 2019-07-19 00:30 | NUR ---
pT. RECIEVED FROM ER VIA [facility].BEDSIDE REPORT GIVEN BY ER NURSE. PT AAO X1, FOLLOWS COMMANDS. SKIN INTACT ON TELEMETRY SR. IV LAC 18 G INFUSING FLUIDS .MRSA NARES SWABS TAKEN AND SENT TO THE LAB PER PROTOCOL. FAMILY AT BEDSIDE GIVING INFOMATION RELATED TO THE PT CONDITION. INITIAL ASSESSMENT DONE.PT ORIENTATED TO THE FLOOR CALL LIGHT WITHIN REACH.
[2019-07-19] MEDS ORDERED: MAG SULF 2000 MG/WATER PREMIX 50 ML IV SCH (01:00)
[2019-07-19] MEDS ORDERED: FUROSEMIDE 40 MG/4 ML VIAL IVP SCH ×2 (01:00→09:00)
[2019-07-19] MEDS ORDERED: DEXT 5% /NACL 0.9% 1,000 ML IV SCH (01:00)
[2019-07-19 04:00] VITALS: BP 166/84
--- NOTE | 2019-07-19 04:00 | NUR ---
PT HAS BEEN MONITORED CLOSELY.. PT URINATING IN URINAL. SR TELE. CALL LIGHT WITHIN REACH.
[2019-07-19] MEDS: LEVOTHYROXINE 0.05 MG TAB PO SCH ×2 (05:51→06:22)
[2019-07-19] MEDS: BLOOD GLUCOSE MONITORING 1 DEV DEV FS SCH ×3 (06:01→16:30)
[2019-07-19] MEDS ORDERED: cefTRIAXone 500 MG VIAL ONE (06:07)
[2019-07-19] MEDS ORDERED: ALBUTEROL SULFATE/IPRATROPIU 3 ML SOL IH PRN ×2 (06:30→09:15)
--- NOTE | 2019-07-19 06:33 | NUR ---
PT ES GETTING MORE ALERT, USING URINAL VOIDING WELL, PT WILL BE ENDORSED TO DAY SHIFT NURSEFOR CONTINUE OF CARE
--- NOTE | 2019-07-19 07:30 | NUR ---
RECEIVED REPORT FROM DISPATCHER STREET DEPARTMENT NURSE. PATIENT LYING DOWN IN BED SLEEPING, AROUSABLE BY VOICE. NO DISTRESS NOTED. DENIES ANY PAIN. AAOX2, CALM, COOPERATIVE, SKIN COLOR APPROPRIATE TO ETHNICITY, WARM TO TOUCH. SKIN INTACT. RESPIRATIONS EVEN, UNLABORED, ON ROOM AIR. IV SITE INTACT, PATENT, AND INFUSING IVF PER MD ORDERS. ABDOMEN SOFT, NON-DISTENDED. REVIEWED PLAN OF CARE WITH PATIENT. PATIENT VERBALIZED UNDERSTANDING, REINFORCEMENT NEEDED. SAFETY MEASURES IN PLACE, CALL LIGHT WITHIN REACH. WILL CONTINUE TO MONITOR.
[2019-07-19 07:38] LABS: BASOPHILS % (AUTO) 0.1 % (0.0-2.0); HEMATOCRIT 44.1 % (36-52); HEMOGLOBIN 14.7 g/dL (12.0-18.0); LYMPHOCYTES # (AUTO) 0.7 K/uL (2.0-11.5); MEAN CORPUSCULAR HEMOGLOBIN 32 pg (27-31); MEAN CORPUSCULAR HGB CONC 33 g/dL (33-37); MEAN CORPUSCULAR VOLUME 95.7 fL (80-94); MONOCYTES # (AUTO) 0.6 K/uL (0.8-1.0); MONOCYTES % (AUTO) 6.5 % (1.7-9.3); NEUTROPHILS # (AUTO) 7.6 K/uL (1.8-7.7); NEUTROPHILS % (AUTO) 85.4 % (42.2-75.2); PLATELET COUNT (AUTO) 209 K/uL (140-450); RED BLOOD CELL COUNT(AUTO) 4.61 MIL/uL (4.20-6.10); RED CELL DISTRIBUTION WIDTH 13.5 % (11.6-13.7); WHITE BLOOD COUNT (AUTO) 8.9 K/uL (4.8-10.8)
[2019-07-19 08:00] VITALS: BP 142/72
[2019-07-19] MEDS ORDERED: AZITHROMYCIN 250 MG in DEXTROSE 5% 250 ML IV SCH (08:00)
[2019-07-19] MEDS ORDERED: CARVEDILOL 12.5 MG TAB PO SCH (08:00)
[2019-07-19 08:20] LABS: ANION GAP 14.3 (8-16); CARBON DIOXIDE 28.8 mmol/L (21-32); CHLORIDE 96 mmol/L (98-107); CREATININE 1.1 mg/dL (0.7-1.3); GLUCOSE 159 mg/dL (74-106); POTASSIUM 4.1 mmol/L (3.5-5.1); SODIUM SERUM 135 mmol/L (136-145); UREA NITROGEN, BLOOD 14 mg/dL (7-18)
--- NOTE | 2019-07-19 08:22 | NUR ---
PATIENT HAS BEEN SCREENED AND CATEGORIZED MODERATE NUTRITION RISK. PATIENT WILL BE SEEN WITHIN 3-5 DAYS OF ADMISSION. 07/22/19 07/24/[address]
[2019-07-19 08:30] LABS: PROTHROMBIN TIME 10.9 secs (10.8-13.4)
[2019-07-19] MEDS ORDERED: ATORVASTATIN 20 MG TAB PO SCH (09:00)
[2019-07-19] MEDS ORDERED: ASPIRIN 81 MG TAB.CHEW PO SCH (09:00)
[2019-07-19] MEDS ORDERED: LACTOBACILLUS RHAMNOSUS GG 1 EACH CAP PO SCH (09:00)
[2019-07-19] MEDS ORDERED: LISINOPRIL 10 MG TAB PO SCH (09:00)
--- NOTE | 2019-07-19 09:11 | NUR ---
PATIENT SITTING IN BED, FAMILY MEMBERS AT BEDSIDE. NO DISTRESS NOTED. DENIES ANY PAIN. SCHEDULED MEDICATIONS DUE GIVEN. WILL CONTINUE TO MONITOR.
[2019-07-19 12:00] VITALS: BP 113/54
--- NOTE | 2019-07-19 13:33 | NUR ---
*S.T. Bedside swallow eval completed* See report. Pt presents with moderate oral phase dysphagia c/b limited oromotor ROM and strength, with limited mastication, poor bolus formation and prolonged A/P propulsion, delayed pharyngeal swallow response. No coughing or choking or watery eyes or wet voice observed. Family reported that pt feeds self at baseline. However, during eval, when pt was asked to feed self, he demo'd mod difficulty with dominant UE coordination. Recommend: 1) Downgrade diet texture to mechanical soft ground diet, thin liquids okay. Straws ok. 2) P.O. meds cut in half and/or crushed and mixed with applesauce. 3) 1:1 feeder w/ aspiration precautions. Results/recommendations d/w family members at bedside (3 daughters). Pt appears to be functioning at baseline level. No further swallow tx indicated at this time. [facility] to [facility]. Endorsed to AYUSH Patel. Time [id number]
--- NOTE | 2019-07-19 15:00 | NUR ---
FAXED THE URGENT REQUEST FOR HIGHER LEVEL TO [facility] , [facility] AND [facility] TO FOLLOW UP
[2019-07-19] MEDS ORDERED: NACL 3% 500 ML IV SCH (15:50)
--- NOTE | 2019-07-19 15:57 | NUR ---
RECEIVED A CALL FROM [place] ,SPOKE WITH [facility] NO BED AVAILABLE AND RECOMMENDED PT NEEDS TO BE TRANSFERRED ORI . CALLED [facility] SPOKE WITH LENNY , REVIEW THE CASE AND WILL CALL BACK.
[2019-07-19 16:00] VITALS: BP 123/62
--- NOTE | 2019-07-19 16:16 | NUR ---
JYOTI FROM [place] CALLED AND REPORTED THAT [facility] HAS BED FOR PATIENT AT UNIT 8100, ROOM 1, BED 2. NUMBER FOR REPORT IS [phone]. NOTIFIED NAZARIO RANDLE. RAZIA AWARE AND WILL CALL JYOTI BACK.
[2019-07-19] MEDS ORDERED: OSMITROL 25% 12.5 GM/50 ML VIAL IV SCH (16:30)
--- NOTE | 2019-07-19 16:58 | NUR ---
RECEIVED A CALL FROM ASHLEY YOUSSEF SPOKE WITH JYOTI PT CAN GO TO ROOM UNIT 8[address] JASON STEWART # TO GIVE REPORT [phone] ARRANGED TRANSPORT WITH [facility]LECULAR GENETIC PATHOLOGIST TIME 5:30 PM NOTIFIED NORBERTO PEACOCK
--- NOTE | 2019-07-19 18:20 | NUR ---
[facility] TRANSPORT ON UNIT READY TO BE TRANSFERRED TO [facility]. ID BANDS REMOVED. PATIENT TRANSFERRED TO [place] AT THIS TIME VIA [facility].
[2019-07-20 07:18] LABS: HEPATITIS A ANTIBODY IGM Negative (Negative); HEPATITIS B CORE AB TOTAL Negative (Negative); HEPATITIS B SURFACE ANTIBODY Non Reactive (.); HEPATITIS B SURFACE ANTIGEN Negative (Negative)
[2019-07-20] MEDS ORDERED: FUROSEMIDE 20 MG/2 ML VIAL IVP SCH (09:00)
== END 2019-07-19 18:20 | disposition short-term general hospital (02) | DRG 45 ==
LOC: MED 20:38 → MTU 23:41
PROVIDERS: ADMIT General Practice; ATTEND General Practice
DX: I63.9 Cerebral infarction, unspecified (principal); I61.4 Nontraumatic intracerebral hemorrhage in cerebellum; J69.0 Pneumonitis due to inhalation of food and vomit; I50.43 Acute on chronic combined systolic (congestive) and diastolic (congestive) heart failure; G91.9 Hydrocephalus, unspecified; D68.9 Coagulation defect, unspecified; E83.42 Hypomagnesemia; I48.91 Unspecified atrial fibrillation; E86.0 Dehydration; I42.9 Cardiomyopathy, unspecified; E05.90 Thyrotoxicosis, unspecified without thyrotoxic crisis or storm; E03.9 Hypothyroidism, unspecified; E11.9 Type 2 diabetes mellitus without complications; E78.5 Hyperlipidemia, unspecified; I11.0 Hypertensive heart disease with heart failure; E80.6 Other disorders of bilirubin metabolism; G31.9 Degenerative disease of nervous system, unspecified; I25.10 Atherosclerotic heart disease of native coronary artery without angina pectoris; Z80.0 Family history of malignant neoplasm of digestive organs; Z82.49 Family history of ischemic heart disease and other diseases of the circulatory system; Z83.3 Family history of diabetes mellitus; Z90.49 Acquired absence of other specified parts of digestive tract
CPT/HCPCS: 36415; 36600; 70450; 71045; 76700; 80048; 80053; 80305; 81001; 82550; 82803; 82948; 83036; 83605; 83690; 83735; 83880; 84100; 84439; 84443; 84484; 85025; 85610; 85730; 86704; 86706; 86708; 86709; 86803; 87081; 87340; 87804; 92610; 93005; 94640; 96374; 97116; 97161-GP; 97530; 99285; J0360; J0456; J0696; J1815; J1940; J2150; J3475; J3490; J7042; J7060; J7620; Q0092

== ENCOUNTER 2019-10-25 19:37 | Emergency (ER) | payer MEDICARE, OTHER ==
[~2019-10-25] VITALS: Ht 177.8 cm; Wt 67.1 kg
[~2019-10-25 19:37] MED LIST changes: -AMOX-999 PO
[2019-10-25 19:40] VITALS: BP 154/64
[2019-10-25] MEDS: ACETAMINOPHEN EXTRA STRENGTH 500 MG TAB PO ONE (20:25)
[2019-10-25 20:57] LABS: BASOPHILS # (AUTO) 0.1 K/uL (0.00-0.22); BASOPHILS % (AUTO) 0.7 % (0.0-2.0); EOSINOPHILS # (AUTO) 0.1 K/uL (0-0.4); EOSINOPHILS % (AUTO) 1.9 % (0.0-4.0); HEMATOCRIT 35.1 % (36-52); HEMOGLOBIN 11.7 g/dL (12.0-18.0); LYMPHOCYTES # (AUTO) 1.2 K/uL (2.0-11.5); LYMPHOCYTES % (AUTO) 16.2 % (20.5-51.1); MEAN CORPUSCULAR HEMOGLOBIN 31 pg (27-31); MEAN CORPUSCULAR HGB CONC 33 g/dL (33-37); MEAN CORPUSCULAR VOLUME 94.1 fL (80-94); MONOCYTES # (AUTO) 0.5 K/uL (0.8-1.0); NEUTROPHILS # (AUTO) 5.6 K/uL (1.8-7.7); NEUTROPHILS % (AUTO) 74.2 % (42.2-75.2); PLATELET COUNT (AUTO) 162 K/uL (140-450); RED BLOOD CELL COUNT(AUTO) 3.73 MIL/uL (4.20-6.10); RED CELL DISTRIBUTION WIDTH 14.9 % (11.6-13.7); WHITE BLOOD COUNT (AUTO) 7.5 K/uL (4.8-10.8)
[2019-10-25 21:14] LABS: ALBUMIN 3.6 g/dL (3.4-5.0); ANION GAP 13.8 (8-16); ASPARTATE AMINOTRANSFERASE 22 U/L (15-37); CARBON DIOXIDE 24.2 mmol/L (21-32); CHLORIDE 105 mmol/L (98-107); SODIUM SERUM 139 mmol/L (136-145); UREA NITROGEN, BLOOD 19 mg/dL (7-18)
[2019-10-25 21:33] LABS: CREATININE 1.1 mg/dL (0.6-1.3); GLUCOSE 119 mg/dL (74-106); TOTAL BILIRUBIN 0.6 mg/dL (0.0-1.0)
[2019-10-25 23:29] VITALS: BP 128/58
== END 2019-10-25 23:29 | disposition home or self-care (01) ==
LOC: MED 19:37
DX: J20.9 Acute bronchitis, unspecified (principal); I11.0 Hypertensive heart disease with heart failure; E07.9 Disorder of thyroid, unspecified; Z86.73 Personal history of transient ischemic attack (TIA), and cerebral infarction without residual deficits; E78.00 Pure hypercholesterolemia, unspecified; Z98.890 Other specified postprocedural states; Z79.899 Other long term (current) drug therapy; Z79.82 Long term (current) use of aspirin
CPT/HCPCS: 36415; 36600; 71045; 80053; 82803; 83605; 85025; 87040; 87804; 99284; Q0092

== ENCOUNTER 2021-03-15 01:33 | Inpatient (IN) | payer MEDICARE, OTHER ==
[~2021-03-15] VITALS: Ht 157.5 cm; Wt 77.1 kg
[~2021-03-15 01:33] MED LIST changes: -ASPI-1718 PO; +ASPI-1822 PO; -LISI10TA11 PO; +LISI10TA30 PO
--- NOTE | 2021-03-15 02:00 | NUR ---
Delay in triage d/t patient being in restroom at this time.
--- NOTE | 2021-03-15 02:30 | NUR ---
Delay in triage - pt still currently in restroom, pt states he is okay but is still trying to use restroom.
[2021-03-15 02:56] VITALS: BP 91/58
--- NOTE | 2021-03-15 02:56 | NUR ---
TO BED VIA W/C
--- NOTE | 2021-03-15 03:05 | NUR ---
PT. IS A 89Y/O MALE THAT WAS BROUGHT IN BY SON WITH C/O OF GENERALIZED WEAKNESS. PT. SON STATES HE REFUSES TO EAT FOR 3 DAYS AND HAS BEEN NAUSEATED. DENIES ANY NEW FOODS OR MEDICATIONS. PT. RATES PAIN AT 0/10 AT THIS TIME. LAST BM AN HOUR AGO, PT. SON STATES IT WAS "LOOSE STOOLS, WITH A DARK GREEN COLOR." SKIN IS PINK/WARM/DRY; AAOX4; HR EVEN AND REGULAR; PT DENIES ANY FEVER, CP, SOB, OR COUGH AT THIS TIME; VSS; PATIENT SITTING IN WHEELCHAIR WITH SON ON BED. ER MD MADE AWARE OF PT STATUS.
--- NOTE | 2021-03-15 03:25 | NUR ---
ADELAIDE CORTEZ AT BEDSIDE FOR EXAMINATION
[2021-03-15 05:11] LABS: HEMATOCRIT 26.2 % (36-52); HEMOGLOBIN 8.7 g/dL (12.0-18.0); MEAN CORPUSCULAR HEMOGLOBIN 29 pg (27-31); MEAN CORPUSCULAR HGB CONC 33 g/dL (33-37); MEAN CORPUSCULAR VOLUME 88.2 fL (80-94); PLATELET COUNT (AUTO) 374 K/uL (140-450); RED BLOOD CELL COUNT(AUTO) 2.98 MIL/uL (4.20-6.10); RED CELL DISTRIBUTION WIDTH 15.7 % (11.6-13.7); WHITE BLOOD COUNT (AUTO) 6.6 K/uL (4.8-10.8)
[2021-03-15 05:37] LABS: LYMPHOCYTES % (MANUAL) 5 % (20-46); MONOCYTES % (MANUAL) 6 % (5-12)
[2021-03-15 05:40] LABS: ALBUMIN 2.5 g/dL (3.4-5.0); ANION GAP 12.7 (8-16); ASPARTATE AMINOTRANSFERASE 43 U/L (15-37); CARBON DIOXIDE 27.9 mmol/L (21-32); CHLORIDE 96 mmol/L (98-107); CREATININE 1.4 mg/dL (0.6-1.3); GLUCOSE 148 mg/dL (74-106); POTASSIUM 4.6 mmol/L (3.5-5.1); SODIUM SERUM 132 mmol/L (136-145); THYROID STIMULATING HORMONE 9.04 uIU/mL (0.34-3.74); TOTAL BILIRUBIN 1.1 mg/dL (0.0-1.0); UREA NITROGEN, BLOOD 28 mg/dL (7-18)
--- NOTE | 2021-03-15 05:55 | NUR ---
MARIANNE SWAB (COVID) COMPLETED AND TAKEN TO LAB
--- NOTE | 2021-03-15 06:01 | NUR ---
PT. LAYING COMFORTABLY PRONE POSITION, VOICES NO COMPLAINTS. SON AT BEDSIDE. AWAITING DISPOSITION
[2021-03-15] MEDS ORDERED: NACL 0.9% 1,000 ML IV ONE (06:10)
[2021-03-15] MEDS ORDERED: TRAM50TA1 PO (06:28)
[2021-03-15] MEDS ORDERED: SPIR50TA PO (06:28)
[2021-03-15] MEDS ORDERED: TAMS0.4C96 PO (06:28)
[2021-03-15] MEDS ORDERED: FINA5TAB1 PO (06:28)
[2021-03-15] MEDS ORDERED: SACU1TAB PO (06:28)
--- NOTE | 2021-03-15 07:00 | NUR ---
CHRIS (SON) HAS LEFT BEDSIDE AND HAS ASKED TO BE UPDATED ON PT. PHONE #:
--- NOTE | 2021-03-15 07:15 | NUR ---
REPORT RECEIVED FROM ADELSO RN, TRANSFER OF CARE AT THIS TIME
[2021-03-15 07:54] LABS: APPEARANCE,URINE CLEAR (CLEAR); BILIRUBIN,URINE NEGATIVE (NEGATIVE); BLOOD, URINE NEGATIVE (NEGATIVE); COLOR,URINE YELLOW (YELLOW); LEUKOCYTE ESTERASE ,URINE NEGATIVE (NEGATIVE); NITRITE, URINE NEGATIVE (NEGATIVE); UGLUCOSE NEGATIVE (NEGATIVE)
[2021-03-15 08:15] LABS: RBC,URINE 0-5 /HPF (0-5); WBC,URINE 0-5 /HPF (0-5)
--- NOTE | 2021-03-15 09:00 | NUR ---
PT ALERT AND AWAKE, BREATHING EVEN AND UNLABORED. NO DISTRESS NOTED. WILL CONTINUE TO MONITOR.
--- NOTE | 2021-03-15 10:25 | NUR ---
REPORT GIVEN TO AYUSH HILL. PT TO GO TO TELE 123B
[2021-03-15 10:40] VITALS: BP 117/58
--- NOTE | 2021-03-15 10:40 | NUR ---
PRIOR TO PT ARRIVAL, RECEIVED REPORT FROM ED NURSE. PT RESTING IN BED. ABLE TO MAKE NEEDS KNOWN. RESPIRATIONS EVEN AND UNLABORED WITH NO SOB OR RESPIRATORY DISTRESS. IV SITE IN LAC 20G IS CLEAN, DRY, AND INTACT. MRSA SWAB COLLECTED AND SENT TO LAB. OBTAINED HISTORY FROM [facility] VETERINARY VIRUS SERUM INSPECTOR [facility] [id number]. SAFETY MEASURES IN PLACE. WILL CONTINUE TO MONITOR
--- NOTE | 2021-03-15 10:45 | NUR ---
Patient will be admitted to care of Dr Rodrigues. Admited to Tele. Will go to room 123B. Belongings list completed. Report to Annabelle PEACOCK.
--- NOTE | 2021-03-15 11:00 | NUR ---
CALLED MALIK PEREZ TO ASSESS IF HE KNEW WHEN THE PT RECIEVED THE COVID VACCINE AND WHAT BRAND. LEFT VOICEMAIL. SAFETY MEASURES IN PLACE. WILL CONTINUE TO MONITOR
--- NOTE | 2021-03-15 11:30 | NUR ---
DAUGHTER CALLED AND WANTED UPDATE. UPDATE GIVEN. PER STEW, UNKNOWN DATE OR BRAND OF COVID VACCINE THAT PATIENT RECEIVED. SAFETY MEASURES IN PLACE. WILL CONTINUE TO MONITOR
[2021-03-15 12:00] VITALS: BP 113/62
[2021-03-15] MEDS ORDERED: POTASSIUM CHLORIDE 10 MEQ TABER PO PRN (12:55)
[2021-03-15] MEDS ORDERED: HYDROcodone/APAP 7.5/325 MG 1 TAB PO PRN (12:55)
[2021-03-15] MEDS ORDERED: DOCUSATE SODIUM 100 MG GELCAP PO PRN (12:55)
[2021-03-15] MEDS ORDERED: ONDANSETRON 4 MG/2 ML VIAL IM/IVP PRN (12:55)
[2021-03-15] MEDS ORDERED: ACETAMINOPHEN 325 MG TAB PO PRN (12:55)
[2021-03-15] MEDS ORDERED: DEXTROSE 50% 50 ML SYR IVP PRN (12:55)
--- NOTE | 2021-03-15 12:55 | NUR ---
ADMINISTERED SCHED IVF PRESCRIBED PER MD ORDER. PT TOLERATED WELL. SAFETY MEASURES IN PLACE. WILL CONTINUE TO MONITOR
[2021-03-15] MEDS: NACL 0.9% 1,000 ML IV SCH (13:43)
--- NOTE | 2021-03-15 14:15 | NUR ---
PT RESTING IN BED. ABLE TO MAKE NEEDS KNOWN. RESPIRATIONS EVEN AND UNLABORED WITH NO SOB OR RESPIRATORY DISTRESS. SKIN WARM AND DRY TO TOUCH. SAFETY MEASURES IN PLACE. WILL CONTINUE TO MONITOR
[2021-03-15 14:54] LABS: PROTHROMBIN TIME 12.3 secs (10.8-13.4)
[2021-03-15 16:00] VITALS: BP 134/69
--- NOTE | 2021-03-15 16:30 | NUR ---
PT BLOOD SUGAR IS 120. NO INSULIN NEEDED AT THIS TIME. SAFETY MEASURES IN PLACE. WILL CONTINUE TO MONITOR
[2021-03-15] MEDS: BLOOD GLUCOSE MONITORING 1 DEV DEV FS SCH ×2 (16:32→21:19)
--- NOTE | 2021-03-15 17:45 | NUR ---
PT RESTING IN BED. ABLE TO MAKE NEEDS KNOWN. NO SIGNS OF DISTRESS. SAFETY MEASURES IN PLACE. WILL CONTINUE TO MONITOR
--- NOTE | 2021-03-15 18:15 | NUR ---
PT STATES HE DOES NOT FEEL HUNGRY. OFFERED SOMETHING ELSE TO EAT BUT PATIENT SAYS HE JUST DOES NOT HAVE AN APPETITE. MD AWARE. SAFETY MEASURES IN PLACE. WILL CONTINUE TO MONITOR
--- NOTE | 2021-03-15 19:12 | NUR ---
ENDORSED TO NIGHTSHIFT FOR CONTINUITY OF CARE. PT IS STABLE
--- NOTE | 2021-03-15 19:13 | NUR ---
RECEIVED PATIENT FROM AM NURSE FOR CONTINUITY OF CARE. PATIENT IS AWAKE, RESTING IN BED. RESPIRATORY EVEN AND UNLABORED, ON ROOM AIR, NO SIGN OF DISTRESS NOTED. SKIN WARM, DRY, NON DIAPHORETIC. IV ON LEFT AC 20G, INTACT AND PATENT, IS INFUSING FLUID @40ML/HR. PATIENT DENIES ANY PAIN OR DISCOMFORT. ABLE TO MAKE NEEDS KNOWN. PLAN OF CARE DISCUSSED. PRECAUTION IN PLACE. CALL LIGHT WITHIN REACH. WILL CONTINUE TO MONITOR.
[2021-03-15 20:00] VITALS: BP 109/56
--- NOTE | 2021-03-15 21:19 | NUR ---
BLOOD SUGAR CHECK 121, NO INSULIN NEEDS. PATIENT IS RESTING, NO SIGN OF DISTRESS NOTED. PRECAUTION IN PLACE. CALL LIGHT WITHIN REACH. WILL CONTINUE TO MONITOR.
--- NOTE | 2021-03-15 21:50 | NUR ---
USING [employer]UCK [employer]IVER, #[id number]. PATIENT IS A/A/O X2, ABLE TO VERBALIZED HIS NAME, AND PLACE, UNABLE TO VERBALIZED COMPLETELY HIS . PATIENT DENIES ANY PAIN. REPORTS FEELING WEAKNESS AND WILL NEEDS ASSISTANCE. EDUCATED PATIENT TO USE CALL LIGHT FOR ASSIST. PATIENT VERBALIZED UNDERSTANDING. PRECAUTION IN PLACE. WILL CONTINUE TO MONITOR.
[2021-03-15 22:27] LABS: FREE T4 (FREE THYROXINE) 1.42 ng/dL (0.76-1.46); MAGNESIUM 1.7 mg/dL (1.8-2.4); PHOSPHORUS 3.5 mg/dL (2.5-4.9)
[2021-03-16] VITALS: BP 144/67
--- NOTE | 2021-03-16 | NUR ---
PATIENT IS SLEEPING, AROUSABLE TO VOICE. NO SIGN OF RESPIRATORY DISTRESS NOTED. PRECAUTION IN PLACE. CALL LIGHT WITHIN REACH. WILL CONTINUE TO MONITOR.
--- NOTE | 2021-03-16 02:00 | NUR ---
ROUND CHECK. PATIENT IS SLEEPING, CHEST RISE AND FALL NOTED, NO SIGN OF RESPIRATORY DISTRESS. PRECAUTION IN PLACE. CALL LIGHT WITHIN REACH. WILL CONTINUE TO MONITOR.
[2021-03-16 04:00] VITALS: BP 131/60
--- NOTE | 2021-03-16 04:00 | NUR ---
ROUND CHECK. PATIENT IS SLEEPING, CHEST RISE AND FALL NOTED. NO SIGN OF DISTRESS NOTED. PRECAUTION IN PLACE. CALL LIGHT WITHIN REACH. WILL CONTINUE TO MONITOR.
[2021-03-16 06:23] LABS: ANION GAP 15.2 (8-16); CHLORIDE 99 mmol/L (98-107); CREATININE 1.1 mg/dL (0.6-1.3); GLUCOSE 112 mg/dL (74-106); POTASSIUM 4.2 mmol/L (3.5-5.1); SODIUM SERUM 135 mmol/L (136-145); UREA NITROGEN, BLOOD 23 mg/dL (7-18)
[2021-03-16 06:25] LABS: BASOPHILS % (AUTO) 0.4 % (0.0-2.0); EOSINOPHILS % (AUTO) 0.1 % (0.0-4.0); HEMATOCRIT 24.6 % (36-52); HEMOGLOBIN 8.1 g/dL (12.0-18.0); LYMPHOCYTES # (AUTO) 0.5 K/uL (2.0-11.5); LYMPHOCYTES % (AUTO) 7.5 % (20.5-51.1); MEAN CORPUSCULAR HEMOGLOBIN 29 pg (27-31); MEAN CORPUSCULAR HGB CONC 33 g/dL (33-37); MEAN CORPUSCULAR VOLUME 88.5 fL (80-94); MONOCYTES # (AUTO) 0.7 K/uL (0.8-1.0); MONOCYTES % (AUTO) 10.3 % (1.7-9.3); NEUTROPHILS # (AUTO) 5.6 K/uL (1.8-7.7); NEUTROPHILS % (AUTO) 81.7 % (42.2-75.2); PLATELET COUNT (AUTO) 363 K/uL (140-450); RED BLOOD CELL COUNT(AUTO) 2.78 MIL/uL (4.20-6.10); WHITE BLOOD COUNT (AUTO) 6.9 K/uL (4.8-10.8)
[2021-03-16] MEDS ORDERED: LEVOTHYROXINE 0.05 MG TAB PO SCH (06:30)
[2021-03-16] MEDS: BLOOD GLUCOSE MONITORING 1 DEV DEV FS SCH ×4 (06:33→20:57)
--- NOTE | 2021-03-16 06:33 | NUR ---
BLOOD SUGAR CHECK 101, NO INSULIN NEEDS, SCHEDULE MEDICATION GIVEN WITH EDUCATION. PATIENT TOLERATED WELL. PRECAUTION IN PLACE. CALL LIGHT WITHIN REACH. WILL CONTINUE TO MONITOR.
--- NOTE | 2021-03-16 06:39 | NUR ---
PATIENT HAS BEEN SCREENED AND CATEGORIZED HIGH NUTRITION RISK. PATIENT WILL BE SEEN WITHIN 1-2 DAYS OF ADMISSION. 03/16/21-03/17/21 SCOUT EDMOND MS, RDN
--- NOTE | 2021-03-16 07:15 | NUR ---
ENDORSED PATIENT TO AM NURSE FOR CONTINUITY OF CARE. PATIENT IS STABLE.
--- NOTE | 2021-03-16 07:15 | NUR ---
RECEIVED REPORT FROM PM RN FOR CONTINUITY OF CARE. PATIENT IS RESTING IN BED, NO SIGNS OF DISTRESS OR PAIN. AO TO NAME AND UNDERSTANDS TO IN HOSPITAL. 1 DEGREE HB ON MONITOR. ON RA. REGULAR DIET PER PM NURSE ONLY EATING 10%. LAST BLOOD SUGAR 101, NO COVERAGE. LAST BM WAS YESTERDAY. SIT ON SIDE OF BED TO USE URINAL. IVS CLEAN, DRY, AND INTACT, ON LFA INFUSING NS AT 40 ML/HR. SKINS INTACT. SHIP PILOT DISPATCHER AND SAFETY MEASURES IN PLACE. HEAD OF BED AT 30 DEGREES, BED IN LOW POSITION, BED LOCKED. WILL CONTINUE TO MONITOR.
[2021-03-16 08:00] VITALS: BP 113/52
[2021-03-16] MEDS: FINASTERIDE 5 MG TAB PO SCH (08:37)
[2021-03-16] MEDS: carvediloL 6.25 MG TAB PO SCH ×2 (08:38→20:58)
[2021-03-16] MEDS: TAMSULOSIN 0.4 MG CAP PO SCH (08:38)
[2021-03-16] MEDS: FAMOTIDINE 20 MG TAB PO SCH (08:38)
[2021-03-16] MEDS: ATORVASTATIN 20 MG TAB PO SCH (08:39)
[2021-03-16] MEDS: FUROSEMIDE 20 MG TAB PO SCH (08:39)
[2021-03-16] MEDS: ASPIRIN 81 MG TAB.CHEW PO SCH (08:39)
[2021-03-16] MEDS: SPIRONOLACTONE 50 MG TAB PO SCH (08:39)
--- NOTE | 2021-03-16 08:40 | NUR ---
ADMINISTERED SCHEDULED AM MEDICATION. ORAL CARE, HYGIENE CARE, AND CHG BATH PROVIDED. PATIENT IS IN A RESTING POSITION, MONGOLIAN SPEAKING. NO SIGNS OF PAIN OR DISTRESS. WILL CONTINUE TO MONITOR.
--- NOTE | 2021-03-16 11:00 | NUR ---
DR. JACOB DILL. UPDATED ON PATIENT STATUS AND CONDITION. AWARE OF PATIENTS POOR APPETITE. WILL CONTINUE TO MONITOR.
--- NOTE | 2021-03-16 11:10 | NUR ---
CHECKED BLOOD SUGAR, 101, NO COVERAGE NEEDED. WILL CONTINUE TO MONITOR.
[2021-03-16] MEDS ORDERED: POTASSIUM CHLORIDE 10 MEQ TABER PO PRN (11:30)
[2021-03-16] MEDS ORDERED: MAG SULF 2000 MG/WATER PREMIX 50 ML IV PRN (11:30)
[2021-03-16 12:00] VITALS: BP 102/59
--- NOTE | 2021-03-16 12:50 | NUR ---
CHECKED ON PATIENT. RESTING IN BED. NO SIGN OF DISTRESS OR PAIN. WILL CONTINUE TO MONITOR.
[2021-03-16] MEDS: NACL 0.9% 1,000 ML IV SCH ×2 (12:55→16:04)
[2021-03-16] MEDS: POTASSIUM CHLORIDE 10 MEQ TABER PO SCH (13:01)
--- NOTE | 2021-03-16 13:40 | NUR ---
PATIENT OFF UNIT. WENT TO CT. WILL CONTINUE TO MONITOR.
[2021-03-16] MEDS ORDERED: POTASSIUM CHLORIDE 10 MEQ TABER PO SCH (14:00)
--- NOTE | 2021-03-16 14:20 | NUR ---
PATIENT IS BACK IN ROOM. RECONNECTED IV. NO SIGNS OF DISTRESS OR PAIN. WILL CONTINUE TO MONITOR.
--- NOTE | 2021-03-16 15:15 | NUR ---
DAUGHTER STEW CALLED. WANTED UPDATE ON FATHER AND RESULTS FOR SWALLOW EVALUATION. INFORMED HER THAT SWALLOW EVALUATION HAS NOT BEEN DONE YET. WILL CONTINUE TO MONITOR.
--- NOTE | 2021-03-16 15:25 | NUR ---
CHECKED ON PATIENT. NO SIGN OF DISTRESS OR PAIN. WILL CONTINUE TO MONITOR.
--- NOTE | 2021-03-16 15:40 | NUR ---
CHECKED PATIENTS BLOOD SUGAR, 109, NO COVERAGE NEEDED. NO SIGNS OF DISTRESS OR PAIN. WILL CONTINUE TO MONITOR.
[2021-03-16 16:00] VITALS: BP 104/52
--- NOTE | 2021-03-16 18:15 | NUR ---
CALLED. UPDATED ON PATIENT STATUS AND CONDITION. AWARE PATIENT BUN IS AT 23 AND CREATININE AT 1.1. WILL CONTINUE TO MONITOR.
--- NOTE | 2021-03-16 19:14 | NUR ---
RECEIVED PATIENT FROM AM SHIFT NURSE ROYAL DEISI RN FOR CONTINUITY OF CARE. ALERT AND ABLE TO MAKE NEEDS KNOWN. RESPIRATIONS EVEN, UNLABORED. NO S/S RESPIRATORY DISTRESS. S1/S2 AUSCULTATED. TELE MONITORING. SKIN WARM, DRY. IV SITE TO LEFT FOREARM 22G PATENT/INTACT, INFUSING FLUIDS WELL. NO C/O PAIN. NO S/S ACUTE DISTRESS. ABDOMEN SOFT, NONTENDER, NONDISTENDED. BOWEL SOUNDS ACTIVE x4 QUADRANTS. PATIENT IS CONTINENT OF B/B. ENCOURAGED PATIENT TO EAT, PATIENT REFUSED. RISKS AND BENEFITS EXPLAINED. WILL CONTINUE TO PROVIDE EDUCATION REGARDING PROPER NUTRITION. SAFETY PRECAUTIONS IN PLACE. PLAN OF CARE DISCUSSED. CALL LIGHT IN REACH AT ALL TIMES.
--- NOTE | 2021-03-16 19:14 | NUR ---
ENDORSED TO ASHISH PEACOCK, FOR CONTINUITY OF CARE.
[2021-03-16 20:00] VITALS: BP 136/36
--- NOTE | 2021-03-16 21:30 | NUR ---
DUE MEDS GIVEN. PATIENT RESTING COMFORTABLY IN BED. NO S/S ACUTE DISTRESS. CALL LIGHT IN REACH AT ALL TIMES. SAFETY PRECAUTIONS IN PLACE.
--- NOTE | 2021-03-16 23:20 | NUR ---
PATIENT RESTING COMFORTABLY IN BED. NO S/S ACUTE DISTRESS. CALL LIGHT IN REACH AT ALL TIMES. SAFETY PRECAUTION IN PLACE.
[2021-03-17] VITALS: BP 145/61
--- NOTE | 2021-03-17 01:44 | NUR ---
MADE ROUNDS. PATIENT IS ASLEEP. NO S/S ACUTE DISTRESS. CALL LIGHT IN REACH. SAFETY PRECAUTIONS IN PLACE.
--- NOTE | 2021-03-17 03:23 | NUR ---
PATIENT ASLEEP. NO S/S ACUTE DISTRESS. CALL LIGHT WITHIN REACH. SAFETY PRECAUTIONS IN PLACE.
[2021-03-17 04:00] VITALS: BP 142/57
--- NOTE | 2021-03-17 05:23 | NUR ---
PATIENT RESTING IN BED COMFORTABLY. NO C/O PAIN. NO S/S ACUTE DISTRESS. PATIENT CLEAN/DRY. CALL LIGHT WITHIN REACH. SAFETY PRECAUTIONS IN PLACE.
[2021-03-17 05:29] LABS: BASOPHILS # (AUTO) 0.1 K/uL (0.00-0.22); BASOPHILS % (AUTO) 0.9 % (0.0-2.0); EOSINOPHILS % (AUTO) 0.6 % (0.0-4.0); HEMATOCRIT 23.5 % (36-52); HEMOGLOBIN 7.8 g/dL (12.0-18.0); LYMPHOCYTES # (AUTO) 0.6 K/uL (2.0-11.5); LYMPHOCYTES % (AUTO) 8.4 % (20.5-51.1); MEAN CORPUSCULAR HEMOGLOBIN 29 pg (27-31); MEAN CORPUSCULAR HGB CONC 33 g/dL (33-37); MEAN CORPUSCULAR VOLUME 88.5 fL (80-94); MONOCYTES # (AUTO) 0.5 K/uL (0.8-1.0); MONOCYTES % (AUTO) 7.9 % (1.7-9.3); NEUTROPHILS # (AUTO) 5.4 K/uL (1.8-7.7); NEUTROPHILS % (AUTO) 82.2 % (42.2-75.2); PLATELET COUNT (AUTO) 354 K/uL (140-450); RED BLOOD CELL COUNT(AUTO) 2.66 MIL/uL (4.20-6.10); WHITE BLOOD COUNT (AUTO) 6.6 K/uL (4.8-10.8)
[2021-03-17 05:34] LABS: ANION GAP 11.3 (8-16); CARBON DIOXIDE 26.8 mmol/L (21-32); CHLORIDE 101 mmol/L (98-107); CREATININE 1.1 mg/dL (0.6-1.3); GLUCOSE 94 mg/dL (74-106); POTASSIUM 4.1 mmol/L (3.5-5.1); SODIUM SERUM 135 mmol/L (136-145); UREA NITROGEN, BLOOD 21 mg/dL (7-18)
[2021-03-17 05:44] LABS: MAGNESIUM 1.8 mg/dL (1.8-2.4); PHOSPHORUS 2.9 mg/dL (2.5-4.9)
[2021-03-17] MEDS: LEVOTHYROXINE 0.075 MG TAB PO SCH (06:00)
[2021-03-17] MEDS: BLOOD GLUCOSE MONITORING 1 DEV DEV FS SCH ×4 (06:32→20:39)
--- NOTE | 2021-03-17 07:30 | NUR ---
PT RECEIVED FROM CUT FILE CLERK RN. PT RESTING EYES CLOSED. BREATHING IS SYMMETRICAL AND UNLABORED. NO S/S OF DISTRESS AT THIS TIME.
[2021-03-17 08:00] VITALS: BP 136/63
[2021-03-17] MEDS: TAMSULOSIN 0.4 MG CAP PO SCH (09:12)
[2021-03-17] MEDS: FINASTERIDE 5 MG TAB PO SCH (09:13)
[2021-03-17] MEDS: FAMOTIDINE 20 MG TAB PO SCH (09:13)
[2021-03-17] MEDS: ATORVASTATIN 20 MG TAB PO SCH (09:13)
[2021-03-17] MEDS: carvediloL 6.25 MG TAB PO SCH ×2 (09:14→20:44)
[2021-03-17] MEDS: FUROSEMIDE 20 MG TAB PO SCH (09:14)
[2021-03-17] MEDS: ASPIRIN 81 MG TAB.CHEW PO SCH (09:14)
[2021-03-17] MEDS: SPIRONOLACTONE 50 MG TAB PO SCH (09:22)
--- NOTE | 2021-03-17 09:24 | NUR ---
PT MEDICATIONS GIVEN PER MD ORDER. PT EDUCATED. PT VERBALIZED UNDERSTANDING. NO S/S OF DISTRESS AT THIS TIME
--- NOTE | 2021-03-17 09:28 | NUR ---
RENAL MD AT BEDSIDE
--- NOTE | 2021-03-17 11:10 | NUR ---
PT WAS SEEN FOR DYSPHAGIA. PT WAS ABLE TO SAFELY SWALLOW PUREE DIET WITH THIN LIQUID WITHOUT S/S OF ASPIRATION. MILD DIFFICULTY WITH MASTICATION SKILLS FOR MS DIET. RECOMMENDATION PUREE DIET WITH THIN LIQUID
--- NOTE | 2021-03-17 11:22 | NUR ---
PT RESTING IN BED , SPEECH EVALUATION WAS COMPLETE ORDERS RECEIVED AND CARRIED THROUGH. ALL SAFETY MEASURES ARE IN PLACE
[2021-03-17 12:00] VITALS: BP 103/51
--- NOTE | 2021-03-17 12:53 | NUR ---
FNS AT BEDSIDE. PT EATING TOLERATING WELL. NO S/S OF DISTRESS.
[2021-03-17] MEDS: POTASSIUM CHLORIDE 10 MEQ TABER PO SCH (14:00)
--- NOTE | 2021-03-17 14:00 | NUR ---
MEDICATIONS GIVEN PER ,MD ORDER. PT EDUCATED VERBALIZED UNDERSTANDING
--- NOTE | 2021-03-17 15:48 | NUR ---
03/17/21 RD INITIAL ASSESSMENT COMPLETED PLEASE REFER TO NUTRITION ASSESSMENT UNDER CARE ACTIVITY FOR ESTIMATED NUTRITIONAL NEEDS. 1. CONTINUE PUREE DIET PER REGIONAL AIRLINE PILOT RECOMMENDATIONS 2. RECOMMEND ENSURE CLEAR TID 3. ENCOURAGE PO INTAKE AND PROVIDE ASSISTANCE WITH MEALS 4. ALLOW FAMILY MEMBERS TO BRING PUREE FRIENDLY FOODS FROM HOME 5. RD TO FOLLOW-UP 2-3 DAYS, HIGH RISK LUKE HERNANDEZ, RD
[2021-03-17 16:00] VITALS: BP 118/54
--- NOTE | 2021-03-17 16:30 | NUR ---
BG ASSESSED, 168 . PROTOCOL INITIATED
[2021-03-17] MEDS: INSULIN LISPRO SLIDING SCALE 100 UNITS/ML VIAL SUBQ PRN (17:16)
--- NOTE | 2021-03-17 18:23 | NUR ---
PT ASSISTED WITH MEAL TRAY SET UP. PT RESTING IN BED
--- NOTE | 2021-03-17 19:30 | NUR ---
RECEIVED PATIENT FROM AM SHIFT NURSE FOR CONTINUITY OF CARE. ALERT AND ABLE TO MAKE NEEDS KNOWN. RESPIRATIONS EVEN, UNLABORED. NO S/S RESPIRATORY DISTRESS. S1/S2 AUSCULTATED. TELE MONITORING. SKIN WARM, DRY. IV SITE TO LEFT FOREARM 22G PATENT/INTACT, INFUSING FLUIDS WELL. NO C/O PAIN. NO S/S ACUTE DISTRESS. ABDOMEN SOFT, NONTENDER, NONDISTENDED. BOWEL SOUNDS ACTIVE x4 QUADRANTS. PATIENT IS CONTINENT OF B/B. ENCOURAGED PATIENT TO EAT, PATIENT REFUSED. RISKS AND BENEFITS EXPLAINED. WILL CONTINUE TO PROVIDE EDUCATION REGARDING PROPER NUTRITION. SAFETY PRECAUTIONS IN PLACE. PLAN OF CARE DISCUSSED. CALL LIGHT IN REACH AT ALL TIMES.
--- NOTE | 2021-03-17 19:30 | NUR ---
PT ENDORSED FOR CONTINUITY OF CARE
[2021-03-17 20:00] VITALS: BP 127/62
--- NOTE | 2021-03-17 21:30 | NUR ---
DUE MEDS GIVEN. PATIENT RESTING COMFORTABLY IN BED. CALL LIGHT IN REACH. SAFETY PRECAUTIONS IN PLACE.
--- NOTE | 2021-03-17 23:45 | NUR ---
PATIENT IS RESTING COMFORTABLY IN BED. NO S/S ACUTE DISTRESS. CALL LIGHT IN REACH. SAFETY PRECAUTIONS IN PLACE.
[2021-03-18] VITALS: BP 132/60
--- NOTE | 2021-03-18 01:44 | NUR ---
MADE ROUNDS. PATIENT IS ASLEEP.
--- NOTE | 2021-03-18 03:46 | NUR ---
MADE ROUNDS. PATIENT IS ASLEEP. NO S/S ACUTE DISTRESS. CALL LIGHT WITHIN REACH. SAFETY PRECAUTIONS IN PLACE.
[2021-03-18 04:00] VITALS: BP 107/54
[2021-03-18 05:16] LABS: MAGNESIUM 1.8 mg/dL (1.8-2.4); PHOSPHORUS 2.7 mg/dL (2.5-4.9)
--- NOTE | 2021-03-18 05:28 | NUR ---
PATIENT IS RESTING COMFORTABLY IN BED. NO S/S ACUTE DISTRESS. CALL LIGHT IN REACH. SAFETY PRECAUTIONS IN PLACE.
[2021-03-18] MEDS: LEVOTHYROXINE 0.075 MG TAB PO SCH (05:40)
[2021-03-18 06:12] LABS: ANION GAP 12.1 (8-16); CARBON DIOXIDE 24.5 mmol/L (21-32); CHLORIDE 101 mmol/L (98-107); CREATININE 1.1 mg/dL (0.6-1.3); GLUCOSE 103 mg/dL (74-106); POTASSIUM 3.6 mmol/L (3.5-5.1); SODIUM SERUM 134 mmol/L (136-145); UREA NITROGEN, BLOOD 20 mg/dL (7-18)
[2021-03-18 06:16] LABS: BASOPHILS # (AUTO) 0.1 K/uL (0.00-0.22); BASOPHILS % (AUTO) 1.9 % (0.0-2.0); EOSINOPHILS # (AUTO) 0.1 K/uL (0-0.4); EOSINOPHILS % (AUTO) 1.5 % (0.0-4.0); HEMATOCRIT 22.2 % (36-52); HEMOGLOBIN 7.3 g/dL (12.0-18.0); LYMPHOCYTES # (AUTO) 0.6 K/uL (2.0-11.5); LYMPHOCYTES % (AUTO) 10.1 % (20.5-51.1); MEAN CORPUSCULAR HEMOGLOBIN 29 pg (27-31); MEAN CORPUSCULAR HGB CONC 33 g/dL (33-37); MEAN CORPUSCULAR VOLUME 87.6 fL (80-94); MONOCYTES # (AUTO) 0.4 K/uL (0.8-1.0); MONOCYTES % (AUTO) 6.5 % (1.7-9.3); NEUTROPHILS # (AUTO) 4.7 K/uL (1.8-7.7); PLATELET COUNT (AUTO) 326 K/uL (140-450); RED BLOOD CELL COUNT(AUTO) 2.53 MIL/uL (4.20-6.10); RED CELL DISTRIBUTION WIDTH 15.6 % (11.6-13.7); WHITE BLOOD COUNT (AUTO) 5.9 K/uL (4.8-10.8)
[2021-03-18] MEDS: BLOOD GLUCOSE MONITORING 1 DEV DEV FS SCH ×4 (06:31→21:17)
--- NOTE | 2021-03-18 07:15 | NUR ---
RECEIVED BEDSIDE REPORT FROM RECYCLING CREW SUPERVISOR NURSE FOR CONTINUITY OF CARE. PT IS AWAKE AND ALERT. ON RA WITH BREATHING UNLABORED. ON TELE MONITORING. PT IS CONTINENT WITH URINAL AT BEDSIDE. SKIN IS WARM, DRY, AND INTACT. IV IS IN THE LEFT FOREARM 22 GAUGE SALINE LOCKED. FALL AND STANDARD PRECAUTIONS IN PLACE. PT IS STABLE AT THIS TIME. WILL CONTINUE TO MONITOR.
[2021-03-18 08:00] VITALS: BP 100/54
[2021-03-18] MEDS: ATORVASTATIN 20 MG TAB PO SCH (08:29)
[2021-03-18] MEDS: ASPIRIN 81 MG TAB.CHEW PO SCH (08:29)
[2021-03-18] MEDS: TAMSULOSIN 0.4 MG CAP PO SCH (08:29)
[2021-03-18] MEDS: carvediloL 6.25 MG TAB PO SCH ×2 (08:30→21:14)
[2021-03-18] MEDS: FAMOTIDINE 20 MG TAB PO SCH (08:30)
[2021-03-18] MEDS: FUROSEMIDE 20 MG TAB PO SCH (08:30)
[2021-03-18] MEDS: SPIRONOLACTONE 50 MG TAB PO SCH (08:30)
[2021-03-18] MEDS: FINASTERIDE 5 MG TAB PO SCH (08:40)
--- NOTE | 2021-03-18 09:00 | NUR ---
HELD MEDICATIONS; SPIRONOLACTONE, LASIX, AND CARVEDILOL FOR DECREASED BLOOD PRESSURE. BLOOD PRESSURE WAS 100/[address] LION INFORMED VIA TEXT MESSAGE. DOCTOR IS AWARE.
[2021-03-18] MEDS ORDERED: SYN.075 PO (10:01)
--- NOTE | 2021-03-18 11:00 | NUR ---
PT IS SLEEPING IN SEMI FOWLERS POSITION. BREATHING IS UNLABORED ON RA. IV IS INTACT. NO DISTRESS AT THIS TIME. FALL PRECAUTIONS IN PLACE.
[2021-03-18 12:00] VITALS: BP 94/46
--- NOTE | 2021-03-18 13:00 | NUR ---
FAMILY IS AT BEDSIDE ENCOURAGING PT TO EAT. PT HAD 75% OF LUNCH. TOLERATED FOOD WELL. PT DENIES ANY PAIN OR DISTRESS AT THIS TIME. WILL MONITOR.
[2021-03-18] MEDS: POTASSIUM CHLORIDE 10 MEQ TABER PO SCH (13:39)
--- NOTE | 2021-03-18 15:00 | NUR ---
PT IS LAYING IN BED WITH EYES OPEN. A&OX4. NO DISTRESS NOTED. BREATHING IS UNLABORED. PT STABLE.
--- NOTE | 2021-03-18 15:26 | NUR ---
SPOKE TO STEW, DAUGHTER, ON THE PHONE. UPDATED HER ON CONDITION OF PT. ALL QUESTIONS ANSWERED. SHE STATED THAT SOMEBODY CALLED HER FROM THE HOSPITAL BUT DID NOT LEAVE A MESSAGE. WILL INQUIRY AND HAVE THEM CALL HER BACK.
[2021-03-18 16:00] VITALS: BP 106/50
--- NOTE | 2021-03-18 16:19 | NUR ---
RECEIVED PHONE CALL FROM RAZIA, UNDERGROUND MINER, THAT PT WAS ACCEPTED BY [facility]. [facility] WILL DELIVER THE BEDSIDE COMMODE. SHE STATED THAT THE PT IS ABLE TO BE DC'D HOME.
--- NOTE | 2021-03-18 16:20 | NUR ---
DC PLANNING: CALLED PATIENT'S INSURANCE J[employer] DE LE[employer] SPOKE WITH ENDY STATED [facility] AND [facility] ARE CONTRACTED WITH JI DE LE[employer]. CALLED [facility] [phone] ACCEPTED PATIENT AND [facility] [phone] WILL DELIVER FWW AND BED SIDE COMMODE. CALLED PT MALIK PEREZ STATED PT WILL STAY WITH HIM IN [place] THE ADDRESS IS [phone] [facility] [address] [id number] . PT WILL BE DISCHARGED TODAY. NOTIFIED ROEL PEACOCK. NAZARIO TO FOLLOW
--- NOTE | 2021-03-18 17:00 | NUR ---
INFORMED PT OF THE PLAN OF CARE TO DC WITH HOME HEALTH. ENCOURAGED PT TO DRINK MORE WATER INSTRUCTED BY BRUSH MATERIAL PREPARER. PT VERBALIZED UNDERSTANDING.
--- NOTE | 2021-03-18 17:16 | NUR ---
CALLED CHRIS, SON, TO ARRANGE TO BLOOD SPLATTER ANALYST PT FOR DC. CALLED SON TWICE AND NO RESPONSE. LEFT MESSAGE ON VOICEMAIL. WILL WAIT FOR CALL BACK.
--- NOTE | 2021-03-18 17:25 | NUR ---
SPOKE WITH STEW, DAUGHTER, INFORMED HER OF THE PLAN OF CARE. ALL QUESTIONS ANSWERED. STATED SHE WOULD TALK TO HER BROTHER CHRIS ABOUT PICKING UP PT FOR DC AND FOR MORE INFORMATION.
[2021-03-18] MEDS: INSULIN LISPRO SLIDING SCALE 100 UNITS/ML VIAL SUBQ PRN (17:57)
--- NOTE | 2021-03-18 19:20 | NUR ---
ENDORSED PT TO CONCRETE PLACEMENT EQUIPMENT OPERATOR NURSE FOR CONTINUITY OF CARE. PT IS AWAKE AND ALERT. PT IS STABLE. PLAN OF CARE DISCUSSED.
--- NOTE | 2021-03-18 19:21 | NUR ---
RECEIVED PATIENT FROM AM NURSE FOR CONTINUITY OF CARE. PATIENT IS AWAKE, AND ALERT. RESPIRATORY EVEN AND UNLABORED, ON ROOM AIR. SKIN WARM, DRY, NON DIAPHORETIC. IV ON LEFT FA 22G, INTACT AND PATENT, SALINE LOCK. PATIENT ABLE TO USE URINAL. DENIES ANY PAIN OR DISCOMFORT. ABLE TO MAKE NEED KNOW. WAITING FOR FAMILY MEMBER ASSISTANT TRACK COACH PATIENT. FAMILY WAS NOTIFIED. PLAN OF CARE DISCUSSED. PRECAUTION IN PLACE. CALL LIGHT WITHIN REACH. WILL CONTINUE TO MONITOR.
--- NOTE | 2021-03-18 19:57 | NUR ---
RECEIVED CALL FROM STEW, PATIENT'S DAUGHTER, INFORMED HER PATIENT DISCHARGE AND READY TO BALANCE ASSEMBLER. SHE AWARE AND WILL CONTACT TO FAMILY'S MEMBER TO BALANCE ASSEMBLER PATIENT.
[2021-03-18 20:00] VITALS: BP 133/63
--- NOTE | 2021-03-18 20:39 | NUR ---
CONTACT PATIENT'S DAUGHTER, STEW. DUE TO THEIR EMERGENCY, THEY UNABLE TO ASSEMBLER AND TESTER ELECTRONICS PATIENT ASHLYN, HIS DAUGHTER WILL PICK HIM UP BY TOMORROW AFTER SHE GETS OFF WORK. WILL NOTIFY
--- NOTE | 2021-03-18 21:09 | NUR ---
SPOKE WITH STEW, DAUGHTER, INFORMED HER THAT PER , THEY NEED TO APPEAL THE DISCHARGE AND WILL HAVE TO PAY OUT OF POCKET UNTIL PATIENT IS DISCHARGED. FAMILY'S MEMBER VERBALIZED UNDERSTANDING AND WILL CONTACT AGAIN.
--- NOTE | 2021-03-18 21:17 | NUR ---
BLOOD SUGAR CHECK 82, NO INSULIN GIVEN. SCHEDULE MEDICATION GIVEN WITH EDUCATION. PATIENT TOLERATED WELL. NO SIGN OF DISTRESS NOTED. PRECAUTION IN PLACE. CALL LIGHT WITHIN REACH. WILL CONTINUE TO MONITOR.
--- NOTE | 2021-03-18 22:17 | NUR ---
CONTACT STEW, DAUGHTER, NO ANSWER PHONE, LEAVE VOICE MESSAGE. WILL FOLLOW UP.
--- NOTE | 2021-03-18 23:13 | NUR ---
REMOVED ID BAND AND IV, BLEEDING CONTROL. TRANSFER PATIENT WITH BELONGING TO LOBBY BY WHEELCHAIR. PATIENT DISCHARGE TO HOME WITH FAMILY MEMBER, CHRIS-SON UNDERGROUND DISTRIBUTION ENGINEER PATIENT AND SIGNED PAPER. EDUCATION GIVEN, PATIENT'S FAMILY VERBALIZED UNDERSTANDING. PATIENT IS STABLE.
== END 2021-03-18 23:13 | disposition home or self-care (01) | DRG 422 ==
LOC: MED 01:33 → MTU 06:37
PROVIDERS: ADMIT Emergency Medicine; ATTEND Emergency Medicine
DX: E86.0 Dehydration (principal); N17.0 Acute kidney failure with tubular necrosis; G93.41 Metabolic encephalopathy; E43 Unspecified severe protein-calorie malnutrition; I50.43 Acute on chronic combined systolic (congestive) and diastolic (congestive) heart failure; E03.9 Hypothyroidism, unspecified; N18.9 Chronic kidney disease, unspecified; E11.22 Type 2 diabetes mellitus with diabetic chronic kidney disease; Z86.73 Personal history of transient ischemic attack (TIA), and cerebral infarction without residual deficits; Z20.822 Contact with and (suspected) exposure to COVID-19; I13.0 Hypertensive heart and chronic kidney disease with heart failure and stage 1 through stage 4 chronic kidney disease, or unspecified chronic kidney disease; Z68.31 Body mass index [BMI] 31.0-31.9, adult; R63.0 Anorexia; E83.42 Hypomagnesemia; E87.1 Hypo-osmolality and hyponatremia; D63.8 Anemia in other chronic diseases classified elsewhere; Z83.3 Family history of diabetes mellitus; Z82.49 Family history of ischemic heart disease and other diseases of the circulatory system
CPT/HCPCS: 36415; 70450; 71045; 80048; 80053; 81001; 82272; 82948; 83036; 83690; 83735; 83880; 84100; 84436; 84439; 84443; 84479; 84484; 85025; 85610; 85730; 87081; 92610; 92700; 96360; 97110; 97112; 97116; 97163-GP; 97530; 99285; J1644; J1815